=== PATIENT | female | born 1965 | race Caucasian/White ===

== ENCOUNTER 2017-01-21 14:44 | Inpatient (IN) | payer MEDICARE, MEDICAID ==
[~2017-01-21] VITALS: Ht 149.9 cm; Wt 83.7 kg
[~2017-01-21 14:44] MED LIST: DIPH25 PO; DIVA500T52 PO; GABA-531 PO; HALO10 PO; LEVE500T53 PO; LEVO500 PO; LORA0.5T2 PO; LORA10TA7 PO; OXYB5 PO; PANT40TA25 PO; VIST50 PO
[2017-01-21] MEDS ORDERED: ASPI-556 PO (15:44)
[2017-01-21] MEDS ORDERED: SODIUM CHLORIDE 0.9% 1,000 ML IV ONE (16:30)
[2017-01-21 16:50] LABS: BASOPHILS % (AUTO) 0.7 % (0.0-2.0); EOSINOPHILS % (AUTO) 0.2 % (1.0-6.0); HEMATOCRIT 40.5 % (36-46); HEMOGLOBIN 13.6 g/dL (12.0-16.0); LYMPHOCYTES % (AUTO) 27.2 % (22.0-44.0); MEAN CORPUSCULAR HEMOGLOBIN 33.9 pg (26.0-34.0); MEAN CORPUSCULAR HGB CONC 33.4 G/dL (31.0-37.0); MEAN CORPUSCULAR VOLUME 101 fL (80-100); MONOCYTES # (AUTO) 0.5 K/uL (0.1-1.0); MONOCYTES % (AUTO) 6.7 % (2.0-9.0); NEUTROPHILS # (AUTO) 4.8 K/uL (1.8-7.7); NEUTROPHILS % (AUTO) 65.2 % (40.0-70.0); PLATELET COUNT (AUTO) 222 K/uL (150-450); RED CELL DISTRIBUTION WIDTH 13.2 % (11.5-14.5); WHITE BLOOD COUNT (AUTO) 7.4 K/uL (4.5-11.0)
[2017-01-21 17:10] LABS: ANION GAP 10 mmol/L (8-16); CARBON DIOXIDE 28 mmol/L (22-29); CHLORIDE 103 mmol/L (98-107); CREATININE 0.82 mg/dL (0.60-1.30); GLOMERULAR FILTR. RATE CALC > 60 mL/min (>60); POTASSIUM 3.8 mmol/L (3.5-5.1); SODIUM SERUM 141 mmol/L (136-145); UREA NITROGEN, BLOOD 10 mg/dL (7-18)
[2017-01-21 17:16] LABS: ALANINE AMINOTRANSFERASE 16 U/L (12-78); ALBUMIN 3.3 g/dL (3.4-5.0); ASPARTATE AMINOTRANSFERASE 10 U/L (15-37); BILIRUBIN,TOTAL 0.1 mg/dL (0.1-1.0); TOTAL PROTEIN, SERUM 6.8 g/dL (6.4-8.2)
[2017-01-21 17:38] LABS: ACETAMINOPHEN < 2 mcg/mL (10-30)
[2017-01-21 17:42] LABS: SALICYLATE 4.1 mg/dL (2.8-20.0)
[2017-01-21] MEDS ORDERED: ZOLPIDEM TARTRATE 10 MG TABLET PO PRN (22:00)
[2017-01-21] MEDS ORDERED: QUEtiapine FUMARATE 100 MG TABLET PO PRN (22:00)
[2017-01-21 22:14] LABS: APPEARANCE,URINE CLEAR (CLEAR); GLUCOSE, URINE (UA) NEGATIVE (NEGATIVE); KETONES,URINE NEGATIVE (NEGATIVE); LEUKOCYTE ESTERASE ,URINE NEGATIVE (NEGATIVE); OCCULT BLOOD,URINE NEGATIVE (NEGATIVE); PH,URINE 7.5 (5.0-8.0); PROTEIN,URINE NEGATIVE (NEGATIVE)
[2017-01-21 22:15] LABS: ADD UA MICROSCOPIC NO
[2017-01-22 00:28] VITALS: BP 119/90
[2017-01-22] MEDS ORDERED: -PHARMACY VACCINE NOTE- MISC ONE ×2 (02:00)
[2017-01-22 08:07] VITALS: BP 148/97
[2017-01-22] MEDS ORDERED: ALBUTEROL SULFATE HFA 90 MCG/PUFF 8 GM INHALER IH PRN (12:15)
[2017-01-22] MEDS: LORazepam 2 MG TABLET PO PRN (12:45)
[2017-01-22] MEDS: GABAPENTIN 300 MG CAPSULE PO SCH ×2 (12:45→16:26)
[2017-01-22] MEDS: HALOPERIDOL 5 MG TABLET PO PRN (12:45)
[2017-01-22 16:12] VITALS: BP 143/79
[2017-01-22] MEDS: DIVALPROEX SODIUM 500 MG ER TABLET PO SCH (20:38)
[2017-01-22] MEDS: HALOPERIDOL 10 MG TABLET PO SCH (20:38)
[2017-01-23] MEDS: HALOPERIDOL 5 MG TABLET PO PRN ×2 (02:26→18:52)
[2017-01-23 02:30] VITALS: BP 144/89
[2017-01-23] MEDS: LevETIRAcetam 500 MG TABLET PO SCH (08:18)
[2017-01-23] MEDS: ASPIRIN 81 MG EC TABLET PO SCH (08:18)
[2017-01-23] MEDS: DiphenhydrAMINE HCL 25 MG CAPSULE PO SCH (08:18)
[2017-01-23 08:19] VITALS: BP 153/102
[2017-01-23] MEDS: GABAPENTIN 300 MG CAPSULE PO SCH ×3 (08:19→16:32)
[2017-01-23] MEDS: LORATADINE 10 MG TABLET PO SCH (08:19)
[2017-01-23] MEDS: LORazepam 2 MG TABLET PO PRN ×2 (08:21→19:46)
[2017-01-23 09:21] VITALS: BP 138/93
[2017-01-23 16:00] VITALS: BP 121/89
[2017-01-23] MEDS: DIVALPROEX SODIUM 500 MG ER TABLET PO SCH (21:06)
[2017-01-23] MEDS: HALOPERIDOL 10 MG TABLET PO SCH (21:07)
[2017-01-24 04:23] VITALS: BP 123/86
[2017-01-24] MEDS: HALOPERIDOL 5 MG TABLET PO PRN ×2 (04:30→12:39)
[2017-01-24] MEDS: DiphenhydrAMINE HCL 25 MG CAPSULE PO SCH (08:13)
[2017-01-24] MEDS: GABAPENTIN 300 MG CAPSULE PO SCH ×3 (08:13→16:00)
[2017-01-24] MEDS: LORATADINE 10 MG TABLET PO SCH (08:13)
[2017-01-24] MEDS: DIVALPROEX SODIUM 500 MG ER TABLET PO SCH ×2 (08:14→20:00)
[2017-01-24] MEDS: ASPIRIN 81 MG EC TABLET PO SCH (08:14)
[2017-01-24] MEDS: LevETIRAcetam 500 MG TABLET PO SCH (08:14)
[2017-01-24 08:34] VITALS: BP 134/71
[2017-01-24] MEDS ORDERED: DIVALPROEX SODIUM 500 MG DR TABLET PO SCH (09:00)
[2017-01-24] MEDS: LORazepam 2 MG TABLET PO PRN ×2 (09:02→20:07)
[2017-01-24 16:07] VITALS: BP 133/77
[2017-01-24] MEDS: HALOPERIDOL 10 MG TABLET PO SCH (20:00)
[2017-01-25] MEDS: HALOPERIDOL 5 MG TABLET PO PRN (05:00)
[2017-01-25 05:13] VITALS: BP 105/68
[2017-01-25] MEDS: LORazepam 2 MG TABLET PO PRN (05:16)
[2017-01-25 07:56] LABS: BASOPHILS % (AUTO) 0.6 % (0.0-2.0); EOSINOPHILS % (AUTO) 1.9 % (1.0-6.0); HEMATOCRIT 40.8 % (36-46); HEMOGLOBIN 13.5 g/dL (12.0-16.0); LYMPHOCYTES # (AUTO) 2.4 K/uL (1.0-4.8); LYMPHOCYTES % (AUTO) 39.7 % (22.0-44.0); MEAN CORPUSCULAR HEMOGLOBIN 33.6 pg (26.0-34.0); MEAN CORPUSCULAR VOLUME 102 fL (80-100); MONOCYTES # (AUTO) 0.5 K/uL (0.1-1.0); MONOCYTES % (AUTO) 8.8 % (2.0-9.0); PLATELET COUNT (AUTO) 219 K/uL (150-450); WHITE BLOOD COUNT (AUTO) 6.1 K/uL (4.5-11.0)
[2017-01-25 07:57] LABS: RBC MORPHOLOGY COMMENT ABNORMAL RBC MORPH
[2017-01-25 08:20] LABS: ALBUMIN 3.1 g/dL (3.4-5.0); BILIRUBIN,DIRECT 0.1 mg/dL (0.00-0.20); BILIRUBIN,TOTAL 0.3 mg/dL (0.1-1.0); TOTAL PROTEIN, SERUM 6.7 g/dL (6.4-8.2)
[2017-01-25] MEDS: DiphenhydrAMINE HCL 25 MG CAPSULE PO SCH (08:26)
[2017-01-25 08:27] VITALS: BP 112/70
[2017-01-25] MEDS: DIVALPROEX SODIUM 500 MG ER TABLET PO SCH (08:27)
[2017-01-25] MEDS: LORATADINE 10 MG TABLET PO SCH (08:27)
[2017-01-25] MEDS: ASPIRIN 81 MG EC TABLET PO SCH (08:27)
[2017-01-25] MEDS: LevETIRAcetam 500 MG TABLET PO SCH (08:27)
[2017-01-25] MEDS: GABAPENTIN 300 MG CAPSULE PO SCH ×2 (08:29→12:07)
== END 2017-01-25 13:45 | disposition home or self-care (01) | DRG 885 ==
LOC: EMS 14:47 → B3A 22:25
PROVIDERS: ADMIT Psychiatry & Neurology Psychiatry; ATTEND Psychiatry & Neurology Psychiatry
DX: F25.0 Schizoaffective disorder, bipolar type (principal); R45.851 Suicidal ideations; J45.909 Unspecified asthma, uncomplicated; J44.9 Chronic obstructive pulmonary disease, unspecified; I10 Essential (primary) hypertension; F17.210 Nicotine dependence, cigarettes, uncomplicated; T42.4X2A Poisoning by benzodiazepines, intentional self-harm, initial encounter; Z91.19 Patient's noncompliance with other medical treatment and regimen; E66.9 Obesity, unspecified; G40.909 Epilepsy, unspecified, not intractable, without status epilepticus; K21.9 Gastro-esophageal reflux disease without esophagitis; G47.00 Insomnia, unspecified; E11.9 Type 2 diabetes mellitus without complications; F15.90 Other stimulant use, unspecified, uncomplicated; R32 Unspecified urinary incontinence; Z88.8 Allergy status to other drugs, medicaments and biological substances; Z79.52 Long term (current) use of systemic steroids; Z88.0 Allergy status to penicillin; Z79.899 Other long term (current) drug therapy; Z79.82 Long term (current) use of aspirin; Z90.49 Acquired absence of other specified parts of digestive tract; Z98.890 Other specified postprocedural states; Z68.37 Body mass index [BMI] 37.0-37.9, adult; Z91.5 Personal history of self-harm; Y93.89 Activity, other specified; Y92.89 Other specified places as the place of occurrence of the external cause; Y99.8 Other external cause status
CPT/HCPCS: 96360; 96361; 99285; G0480; G0481; J3535; J7030

== ENCOUNTER 2017-03-01 15:50 | Inpatient (IN) | payer MEDICARE, MEDICAID ==
[~2017-03-01] VITALS: Ht 149.9 cm; Wt 86.2 kg
[~2017-03-01 15:50] MED LIST changes: +ASPI-556 PO; -LEVO500 PO; -LORA0.5T2 PO; -OXYB5 PO; -PANT40TA25 PO; -VIST50 PO
[2017-03-01] MEDS ORDERED: CHLO100T24 PO (16:27)
[2017-03-01] MEDS ORDERED: HALO10 PO (16:27)
[2017-03-01] MEDS ORDERED: DIPH25 PO (16:27)
[2017-03-01] MEDS ORDERED: HALO5 PO (16:27)
[2017-03-01] MEDS ORDERED: LORA0.5T2 PO (16:27)
[2017-03-01] MEDS ORDERED: HYDR-4031 PO (16:27)
[2017-03-01] MEDS ORDERED: DIVA500T35 PO (16:27)
[2017-03-01 16:54] LABS: BASOPHILS # (AUTO) 0.04 K/uL (0.00-0.20); BASOPHILS % (AUTO) 0.7 % (0.0-2.0); EOSINOPHILS # (AUTO) 0.07 K/uL (0.00-0.70); HEMATOCRIT 41.9 % (36-46); HEMOGLOBIN 13.9 g/dL (12.0-16.0); LYMPHOCYTES # (AUTO) 2.5 K/uL (1.0-4.8); LYMPHOCYTES % (AUTO) 38.2 % (22.0-44.0); MEAN CORPUSCULAR HGB CONC 33.1 G/dL (31.0-37.0); MEAN CORPUSCULAR VOLUME 103 fL (80-100); MONOCYTES # (AUTO) 0.6 K/uL (0.1-1.0); MONOCYTES % (AUTO) 9.8 % (2.0-9.0); NEUTROPHILS # (AUTO) 3.2 K/uL (1.8-7.7); NEUTROPHILS % (AUTO) 50.3 % (40.0-70.0); PLATELET COUNT (AUTO) 162 K/uL (150-450); RED BLOOD CELL COUNT(AUTO) 4.07 MIL/uL (4.00-5.20); RED CELL DISTRIBUTION WIDTH 13.2 % (11.5-14.5); WHITE BLOOD COUNT (AUTO) 6.4 K/uL (4.5-11.0)
[2017-03-01 17:03] LABS: ANION GAP 5 mmol/L (8-16); CALCIUM, TOTAL 8.8 mg/dL (8.8-10.5); CARBON DIOXIDE 31 mmol/L (22-29); CHLORIDE 101 mmol/L (98-107); CREATININE 0.83 mg/dL (0.60-1.30); GLOMERULAR FILTR. RATE CALC > 60 mL/min (>60); POTASSIUM 4.2 mmol/L (3.5-5.1); SODIUM SERUM 137 mmol/L (136-145); UREA NITROGEN, BLOOD 14 mg/dL (7-18)
[2017-03-01 17:09] LABS: ALANINE AMINOTRANSFERASE 15 U/L (12-78); ALBUMIN 3.5 g/dL (3.4-5.0); ASPARTATE AMINOTRANSFERASE 6 U/L (15-37); BILIRUBIN,TOTAL 0.2 mg/dL (0.1-1.0); TOTAL PROTEIN, SERUM 6.8 g/dL (6.4-8.2); VALPROIC ACID 105 mcg/mL (50-100)
[2017-03-01 17:10] LABS: RBC MORPHOLOGY COMMENT ABNORMAL RBC MORPH
[2017-03-01] MEDS ORDERED: LORazepam 2 MG TABLET PO ONE (17:30)
[2017-03-01] MEDS ORDERED: HALOPERIDOL 5 MG TABLET PO ONE (17:30)
[2017-03-01 20:47] VITALS: BP 126/83
[2017-03-02 07:06] VITALS: BP 126/100
[2017-03-02] MEDS: LevETIRAcetam 500 MG TABLET PO SCH (08:20)
[2017-03-02] MEDS: ASPIRIN 81 MG CHEWABLE TABLET PO SCH (08:20)
[2017-03-02] MEDS: LORazepam 2 MG TABLET PO PRN ×3 (08:20→17:39)
[2017-03-02 08:27] VITALS: BP 136/75
[2017-03-02] MEDS: HALOPERIDOL 5 MG TABLET PO PRN ×2 (14:13→18:18)
[2017-03-02 16:00] VITALS: BP 143/78
[2017-03-02] MEDS: NICOTINE 21 MG/24 HOUR PATCH TD SCH (20:24)
[2017-03-02] MEDS: ZOLPIDEM TARTRATE 10 MG TABLET PO PRN (20:59)
[2017-03-03 06:06] VITALS: BP 146/83
[2017-03-03 08:34] VITALS: BP 134/73
[2017-03-03] MEDS: LevETIRAcetam 500 MG TABLET PO SCH (08:44)
[2017-03-03] MEDS: NICOTINE 21 MG/24 HOUR PATCH TD SCH (08:44)
[2017-03-03] MEDS: GABAPENTIN 300 MG CAPSULE PO SCH ×3 (08:44→16:05)
[2017-03-03] MEDS: ASPIRIN 81 MG CHEWABLE TABLET PO SCH (08:45)
[2017-03-03] MEDS: HALOPERIDOL 5 MG TABLET PO SCH ×2 (08:45→16:05)
[2017-03-03] MEDS: LORazepam 2 MG TABLET PO PRN ×2 (09:35→14:49)
[2017-03-03] MEDS ORDERED: ONDANSETRON HCL 4 MG TABLET PO PRN (11:30)
[2017-03-03] MEDS: HALOPERIDOL 5 MG TABLET PO PRN (14:49)
[2017-03-03 16:23] VITALS: BP 135/80
[2017-03-03] MEDS ORDERED: DiphenhydrAMINE HCL 50 MG/ML VIAL IM ONE (19:45)
[2017-03-03] MEDS ORDERED: LORazepam 2 MG/ML VIAL IM ONE (19:45)
[2017-03-03] MEDS ORDERED: HALOPERIDOL LACTATE 5 MG/ML VIAL IM ONE (19:45)
[2017-03-03] MEDS: DIVALPROEX SODIUM 500 MG DR TABLET PO SCH (20:04)
[2017-03-03] MEDS: ZOLPIDEM TARTRATE 10 MG TABLET PO PRN (21:05)
[2017-03-04 05:28] VITALS: BP 137/78
[2017-03-04 08:26] VITALS: BP 125/75
[2017-03-04] MEDS: GABAPENTIN 300 MG CAPSULE PO SCH ×3 (08:32→16:24)
[2017-03-04] MEDS: DIVALPROEX SODIUM 500 MG ER TABLET PO SCH (08:32)
[2017-03-04] MEDS: ASPIRIN 81 MG CHEWABLE TABLET PO SCH (08:32)
[2017-03-04] MEDS: HALOPERIDOL 5 MG TABLET PO SCH ×2 (08:32→16:25)
[2017-03-04] MEDS: LevETIRAcetam 500 MG TABLET PO SCH (08:33)
[2017-03-04] MEDS: NICOTINE 21 MG/24 HOUR PATCH TD SCH (08:33)
[2017-03-04] MEDS: LORazepam 2 MG TABLET PO PRN ×2 (08:54→14:14)
[2017-03-04] MEDS: HALOPERIDOL 5 MG TABLET PO PRN ×2 (12:30→18:04)
[2017-03-04 16:00] VITALS: BP 137/75
[2017-03-04] MEDS: DIVALPROEX SODIUM 500 MG DR TABLET PO SCH (20:27)
[2017-03-04] MEDS: ZOLPIDEM TARTRATE 10 MG TABLET PO PRN (21:05)
[2017-03-05 06:31] VITALS: BP 125/72
[2017-03-05 08:51] VITALS: BP 125/61
[2017-03-05] MEDS ORDERED: HALOPERIDOL DECANOATE 50 MG/ML VIAL IM SCH (09:00)
[2017-03-05] MEDS: LevETIRAcetam 500 MG TABLET PO SCH (09:04)
[2017-03-05] MEDS: DIVALPROEX SODIUM 500 MG ER TABLET PO SCH (09:05)
[2017-03-05] MEDS: GABAPENTIN 300 MG CAPSULE PO SCH ×3 (09:05→16:27)
[2017-03-05] MEDS: ASPIRIN 81 MG CHEWABLE TABLET PO SCH (09:05)
[2017-03-05] MEDS: HALOPERIDOL 5 MG TABLET PO SCH ×2 (09:05→16:28)
[2017-03-05] MEDS: NICOTINE 21 MG/24 HOUR PATCH TD SCH (09:08)
[2017-03-05] MEDS: LORazepam 2 MG TABLET PO PRN (09:08)
[2017-03-05] MEDS ORDERED: DiphenhydrAMINE HCL 25 MG CAPSULE PO PRN (12:30)
[2017-03-05] MEDS: HydrOXYzine PAMOATE 25 MG CAPSULE PO PRN ×2 (12:43→16:46)
[2017-03-05 16:10] VITALS: BP 136/78
[2017-03-05] MEDS: HALOPERIDOL 5 MG TABLET PO PRN (18:16)
[2017-03-05] MEDS: DIVALPROEX SODIUM 500 MG DR TABLET PO SCH (20:17)
[2017-03-06] MEDS: HydrOXYzine PAMOATE 25 MG CAPSULE PO PRN ×2 (04:47→10:38)
[2017-03-06 07:13] VITALS: BP 130/72
[2017-03-06 08:14] VITALS: BP 90/59
[2017-03-06] MEDS: LevETIRAcetam 500 MG TABLET PO SCH (08:19)
[2017-03-06] MEDS: ASPIRIN 81 MG CHEWABLE TABLET PO SCH (08:19)
[2017-03-06] MEDS: GABAPENTIN 300 MG CAPSULE PO SCH ×2 (08:19→12:41)
[2017-03-06] MEDS: HALOPERIDOL 5 MG TABLET PO SCH (08:19)
[2017-03-06] MEDS: DIVALPROEX SODIUM 500 MG ER TABLET PO SCH (08:19)
[2017-03-06] MEDS: NICOTINE 21 MG/24 HOUR PATCH TD SCH (08:20)
[2017-03-06] MEDS ORDERED: HALOD50I IM (08:40)
== END 2017-03-06 13:45 | disposition home or self-care (01) | DRG 885 ==
LOC: BV PSY EVL 15:56 → EMS 16:09 → B3A 18:30 → B2S 20:21 → B3A 21:59
PROVIDERS: ADMIT Psychiatry & Neurology Psychiatry; ATTEND Psychiatry & Neurology Psychiatry
DX: F25.0 Schizoaffective disorder, bipolar type (principal); R45.851 Suicidal ideations; E11.9 Type 2 diabetes mellitus without complications; E78.5 Hyperlipidemia, unspecified; F22 Delusional disorders; G40.909 Epilepsy, unspecified, not intractable, without status epilepticus; G47.00 Insomnia, unspecified; G62.9 Polyneuropathy, unspecified; I10 Essential (primary) hypertension; J44.9 Chronic obstructive pulmonary disease, unspecified; K21.9 Gastro-esophageal reflux disease without esophagitis; Z91.19 Patient's noncompliance with other medical treatment and regimen; F44.5 Conversion disorder with seizures or convulsions; R11.2 Nausea with vomiting, unspecified; E66.9 Obesity, unspecified
CPT/HCPCS: 87081; 99285; 99406; G0480; J1200; J1630; J1631; J2060; Q0162

== ENCOUNTER 2017-07-15 15:35 | Inpatient (IN) | payer MEDICARE, OTHER ==
[~2017-07-15] VITALS: Ht 149.9 cm; Wt 84.2 kg
[~2017-07-15 15:35] MED LIST changes: -ASPI-556 PO; -GABA-531 PO; -HALO10 PO; +HALO5 PO; +HALO50VI4 IM; -LORA10TA7 PO
[2017-07-15] MEDS ORDERED: HALO5 PO (15:56)
[2017-07-15] MEDS ORDERED: HYDR-4031 PO (15:56)
[2017-07-15] MEDS ORDERED: GABA-531 PO (15:56)
[2017-07-15] MEDS ORDERED: AMANL PO (15:56)
[2017-07-15] MEDS ORDERED: TRIH5TAB2 PO (15:56)
[2017-07-15] MEDS ORDERED: ALBUTEROL SULFATE HFA 90 MCG/PUFF 8 GM INHALER IH ONE (16:00)
[2017-07-15 16:23] LABS: ANION GAP 7 mmol/L (8-16); CALCIUM, TOTAL 8.2 mg/dL (8.8-10.5); CARBON DIOXIDE 28 mmol/L (22-29); CHLORIDE 96 mmol/L (98-107); CREATININE 1.38 mg/dL (0.60-1.30); GLOMERULAR FILTR. RATE CALC 40 mL/min (>60); POTASSIUM 3.6 mmol/L (3.5-5.1); SODIUM SERUM 131 mmol/L (136-145); UREA NITROGEN, BLOOD 15 mg/dL (7-18)
[2017-07-15 16:29] LABS: ACETAMINOPHEN < 2 mcg/mL (10-30); ALANINE AMINOTRANSFERASE 8 U/L (12-78); ASPARTATE AMINOTRANSFERASE 10 U/L (15-37); BILIRUBIN,TOTAL 0.3 mg/dL (0.1-1.0); TOTAL PROTEIN, SERUM 6.1 g/dL (6.4-8.2)
[2017-07-15 16:44] LABS: SALICYLATE 3.8 mg/dL (2.8-20.0)
[2017-07-15 17:07] LABS: BASOPHILS # (AUTO) 0.05 K/uL (0.00-0.20); BASOPHILS % (AUTO) 0.7 % (0.0-2.0); EOSINOPHILS # (AUTO) 0.14 K/uL (0.00-0.70); EOSINOPHILS % (AUTO) 1.83 % (1.0-6.0); HEMATOCRIT 22.4 % (36-46); HEMOGLOBIN 7.5 g/dL (12.0-16.0); LYMPHOCYTES # (AUTO) 2.4 K/uL (1.0-4.8); LYMPHOCYTES % (AUTO) 31.6 % (22.0-44.0); MEAN CORPUSCULAR HEMOGLOBIN 35.2 pg (26.0-34.0); MEAN CORPUSCULAR HGB CONC 33.6 G/dL (31.0-37.0); MEAN CORPUSCULAR VOLUME 105 fL (80-100); MONOCYTES # (AUTO) 0.5 K/uL (0.1-1.0); MONOCYTES % (AUTO) 6.5 % (2.0-9.0); NEUTROPHILS # (AUTO) 4.5 K/uL (1.8-7.7); NEUTROPHILS % (AUTO) 59.5 % (40.0-70.0); RED BLOOD CELL COUNT(AUTO) 2.14 MIL/uL (4.00-5.20); RED CELL DISTRIBUTION WIDTH 14.9 % (11.5-14.5); WHITE BLOOD COUNT (AUTO) 7.5 K/uL (4.5-11.0)
[2017-07-15 17:30] LABS: PLATELET COUNT (AUTO) 82 K/uL (150-450); RBC MORPHOLOGY COMMENT ABNORMAL RBC MORPH
[2017-07-15 20:50] VITALS: BP 142/97
[2017-07-15] MEDS ORDERED: ACETAMINOPHEN 325 MG TABLET PO PRN (21:45)
[2017-07-15] MEDS ORDERED: ALBUTEROL SULFATE 2.5 MG/0.5 ML NEB SOLUTION NEB PRN (21:45)
[2017-07-15] MEDS ORDERED: MAGNESIUM HYDROXIDE SUSPENSION 30 ML UDCUP PO PRN (21:45)
[2017-07-15 23:13] VITALS: BP 141/76
[2017-07-16 03:51] VITALS: BP 106/90
[2017-07-16 06:34] LABS: BASOPHILS % (AUTO) 0.6 % (0.0-2.0); EOSINOPHILS % (AUTO) 2.7 % (1.0-6.0); HEMATOCRIT 25.2 % (36-46); HEMOGLOBIN 8.8 g/dL (12.0-16.0); LYMPHOCYTES # (AUTO) 1.7 K/uL (1.0-4.8); LYMPHOCYTES % (AUTO) 31.2 % (22.0-44.0); MEAN CORPUSCULAR HGB CONC 34.9 G/dL (31.0-37.0); MEAN CORPUSCULAR VOLUME 103 fL (80-100); MONOCYTES # (AUTO) 0.4 K/uL (0.1-1.0); MONOCYTES % (AUTO) 7.4 % (2.0-9.0); NEUTROPHILS # (AUTO) 3.2 K/uL (1.8-7.7); NEUTROPHILS % (AUTO) 58.1 % (40.0-70.0); RED BLOOD CELL COUNT(AUTO) 2.44 MIL/uL (4.00-5.20); RED CELL DISTRIBUTION WIDTH 14.5 % (11.5-14.5); WHITE BLOOD COUNT (AUTO) 5.5 K/uL (4.5-11.0)
[2017-07-16 06:43] LABS: PROTHROMBIN TIME 10.4 SEC (9.4-11.6)
[2017-07-16] MEDS ORDERED: [UNRECOGNIZED DRUG - CODE] TD (06:59)
[2017-07-16 07:37] VITALS: BP 124/74
[2017-07-16 08:31] LABS: PLATELET COUNT (AUTO) 99 K/uL (150-450); RBC MORPHOLOGY COMMENT ABNORMAL RBC MORPH
[2017-07-16] MEDS: DOCUSATE SODIUM 100 MG CAPSULE PO SCH ×2 (09:00→20:19)
[2017-07-16] MEDS ORDERED: PANTOPRAZOLE SODIUM 40 MG/VIAL IVP SCH (09:00)
[2017-07-16] MEDS: FOLIC ACID 1 MG TABLET PO SCH (09:21)
[2017-07-16 12:40] VITALS: BP 119/76
[2017-07-16] MEDS: TRIHEXYPHENIDYL HCL 5 MG TABLET PO SCH ×2 (12:40→20:19)
[2017-07-16] MEDS: HALOPERIDOL 10 MG TABLET PO SCH ×2 (12:40→20:20)
[2017-07-16] MEDS: GABAPENTIN 300 MG CAPSULE PO SCH ×2 (12:40→20:19)
[2017-07-16] MEDS ORDERED: AMAN100C12 PO (13:40)
[2017-07-16] MEDS: NICOTINE 21 MG/24 HOUR PATCH TD SCH (14:36)
[2017-07-16 14:48] LABS: INFLUENZA TYPE B NEGATIVE FOR TYPE B (NEGATIVE)
[2017-07-16] MEDS: HydrOXYzine PAMOATE 25 MG CAPSULE PO SCH ×2 (15:21→20:20)
[2017-07-16 15:43] VITALS: BP 116/72
[2017-07-16 19:30] VITALS: BP 141/74
[2017-07-16] MEDS ORDERED: DiphenhydrAMINE HCL 50 MG/ML VIAL IM PRN (22:00)
[2017-07-16] MEDS ORDERED: HALOPERIDOL LACTATE 5 MG/ML VIAL IM PRN (22:00)
[2017-07-16 23:57] VITALS: BP 108/78
[2017-07-17 03:30] VITALS: BP 124/74
[2017-07-17 07:27] VITALS: BP 138/74
[2017-07-17] MEDS: HydrOXYzine PAMOATE 25 MG CAPSULE PO SCH ×3 (07:47→20:00)
[2017-07-17] MEDS: FOLIC ACID 1 MG TABLET PO SCH (07:47)
[2017-07-17] MEDS: GABAPENTIN 300 MG CAPSULE PO SCH ×2 (07:47→20:00)
[2017-07-17] MEDS: HALOPERIDOL 10 MG TABLET PO SCH ×2 (07:48→20:01)
[2017-07-17] MEDS: DOCUSATE SODIUM 100 MG CAPSULE PO SCH ×2 (07:48→20:01)
[2017-07-17] MEDS: TRIHEXYPHENIDYL HCL 5 MG TABLET PO SCH ×2 (07:48→20:00)
[2017-07-17] MEDS: PANTOPRAZOLE SODIUM 40 MG DR TABLET PO SCH (09:44)
[2017-07-17] MEDS: NICOTINE 21 MG/24 HOUR PATCH TD SCH (09:44)
[2017-07-17 09:50] LABS: BASOPHILS % (AUTO) 0.5 % (0.0-2.0); EOSINOPHILS % (AUTO) 1.3 % (1.0-6.0); HEMATOCRIT 23.9 % (36-46); HEMOGLOBIN 8.1 g/dL (12.0-16.0); LYMPHOCYTES % (AUTO) 15.8 % (22.0-44.0); MEAN CORPUSCULAR HEMOGLOBIN 35.5 pg (26.0-34.0); MEAN CORPUSCULAR VOLUME 104 fL (80-100); MONOCYTES # (AUTO) 0.5 K/uL (0.1-1.0); MONOCYTES % (AUTO) 8.8 % (2.0-9.0); NEUTROPHILS # (AUTO) 4.5 K/uL (1.8-7.7); NEUTROPHILS % (AUTO) 73.6 % (40.0-70.0); PLATELET COUNT (AUTO) 131 K/uL (150-450); RED BLOOD CELL COUNT(AUTO) 2.29 MIL/uL (4.00-5.20); RED CELL DISTRIBUTION WIDTH 14.8 % (11.5-14.5); WHITE BLOOD COUNT (AUTO) 6.1 K/uL (4.5-11.0)
[2017-07-17 10:14] LABS: RBC MORPHOLOGY COMMENT ABNORMAL RBC MORPH
[2017-07-17 11:53] VITALS: BP 141/74
[2017-07-17] MEDS: LORazepam 2 MG/ML VIAL IM PRN ×2 (12:33→18:39)
[2017-07-17] MEDS: HYDROCODONE/ACETAMINOPHEN 5-325 MG TABLET PO PRN (14:09)
[2017-07-17 15:21] VITALS: BP 102/69
[2017-07-17 20:00] VITALS: BP 113/62
[2017-07-17] MEDS: ONDANSETRON HCL 4 MG/2 ML VIAL IM PRN (21:32)
[2017-07-17 22:10] LABS: OVA AND PARASITES EXAM Final report
[2017-07-18 00:15] VITALS: BP 102/57
[2017-07-18 05:30] VITALS: BP 114/72
[2017-07-18 07:18] VITALS: BP 105/66
[2017-07-18] MEDS: ONDANSETRON HCL 4 MG/2 ML VIAL IM PRN (07:41)
[2017-07-18] MEDS: HYDROCODONE/ACETAMINOPHEN 5-325 MG TABLET PO PRN (07:42)
[2017-07-18] MEDS: GABAPENTIN 300 MG CAPSULE PO SCH (08:16)
[2017-07-18] MEDS: FOLIC ACID 1 MG TABLET PO SCH (08:16)
[2017-07-18] MEDS: PANTOPRAZOLE SODIUM 40 MG DR TABLET PO SCH (08:16)
[2017-07-18] MEDS: HydrOXYzine PAMOATE 25 MG CAPSULE PO SCH (08:16)
[2017-07-18] MEDS: HALOPERIDOL 10 MG TABLET PO SCH (08:17)
[2017-07-18] MEDS: TRIHEXYPHENIDYL HCL 5 MG TABLET PO SCH (08:17)
[2017-07-18] MEDS: DOCUSATE SODIUM 100 MG CAPSULE PO SCH (08:21)
[2017-07-18] MEDS: NICOTINE 21 MG/24 HOUR PATCH TD SCH (08:23)
[2017-07-18 11:38] VITALS: BP 105/71
[2017-07-18] MEDS ORDERED: FERR-89 PO (12:54)
[2017-07-18] MEDS ORDERED: FOLI1TAB15 PO (12:55)
[2017-07-18 15:13] VITALS: BP 118/70
[2017-10-15] MEDS ORDERED: GABA-531 PO (11:11)
== END 2017-07-18 17:00 | disposition home or self-care (01) | DRG 813 ==
LOC: EMS 15:38 → 6N 19:51
PROVIDERS: ADMIT Internal Medicine; ATTEND Internal Medicine
DX: D69.3 Immune thrombocytopenic purpura (principal); N17.9 Acute kidney failure, unspecified; R45.851 Suicidal ideations; D58.9 Hereditary hemolytic anemia, unspecified; F20.9 Schizophrenia, unspecified; D50.9 Iron deficiency anemia, unspecified; F17.210 Nicotine dependence, cigarettes, uncomplicated; E66.9 Obesity, unspecified; F31.9 Bipolar disorder, unspecified; G40.909 Epilepsy, unspecified, not intractable, without status epilepticus; D69.6 Thrombocytopenia, unspecified; I10 Essential (primary) hypertension; J44.9 Chronic obstructive pulmonary disease, unspecified; K21.9 Gastro-esophageal reflux disease without esophagitis; Z83.3 Family history of diabetes mellitus; Z90.49 Acquired absence of other specified parts of digestive tract; Z88.0 Allergy status to penicillin; Z68.37 Body mass index [BMI] 37.0-37.9, adult
CPT/HCPCS: 82271; 82607; 82728; 82746; 83010; 83540; 83550; 83615; 85032; 85045; 85384; 85397; 86850; 86880; 86900; 86901; 87081; 87177; 87804; 99285; C9113; G0480; G0481; J2060; J2405; J3535

== ENCOUNTER 2017-07-27 12:38 | Emergency (ER) | payer MEDICARE, OTHER ==
[~2017-07-27] VITALS: Ht 165.1 cm; Wt 79.1 kg
[~2017-07-27 12:38] MED LIST changes: +FERR-89 PO; +FOLI1TAB15 PO; +GABA-531 PO; -HALO50VI4 IM; +HYDR-4031 PO; -LEVE500T53 PO; +TRIH5TAB2 PO; +[UNRECOGNIZED DRUG - CODE] TD
[2017-07-27 12:45] VITALS: BP 130/82
[2017-07-27 13:07] LABS: BASOPHILS # (AUTO) 0.06 K/uL (0.00-0.20); BASOPHILS % (AUTO) 0.7 % (0.0-2.0); EOSINOPHILS # (AUTO) 0.04 K/uL (0.00-0.70); EOSINOPHILS % (AUTO) 0.44 % (1.0-6.0); HEMOGLOBIN 10.4 g/dL (12.0-16.0); LYMPHOCYTES # (AUTO) 1.8 K/uL (1.0-4.8); LYMPHOCYTES % (AUTO) 20.1 % (22.0-44.0); MEAN CORPUSCULAR HEMOGLOBIN 35.7 pg (26.0-34.0); MEAN CORPUSCULAR HGB CONC 33.7 G/dL (31.0-37.0); MEAN CORPUSCULAR VOLUME 106 fL (80-100); MONOCYTES # (AUTO) 0.5 K/uL (0.1-1.0); MONOCYTES % (AUTO) 5.9 % (2.0-9.0); NEUTROPHILS # (AUTO) 6.4 K/uL (1.8-7.7); NEUTROPHILS % (AUTO) 72.9 % (40.0-70.0); PLATELET COUNT (AUTO) 254 K/uL (150-450); RED BLOOD CELL COUNT(AUTO) 2.92 MIL/uL (4.00-5.20); RED CELL DISTRIBUTION WIDTH 15.4 % (11.5-14.5); WHITE BLOOD COUNT (AUTO) 8.8 K/uL (4.5-11.0)
[2017-07-27 13:16] LABS: ANION GAP 10 mmol/L (8-16); CALCIUM, TOTAL 9.1 mg/dL (8.8-10.5); CARBON DIOXIDE 26 mmol/L (22-29); CHLORIDE 105 mmol/L (98-107); GLOMERULAR FILTR. RATE CALC > 60 mL/min (>60); POTASSIUM 3.7 mmol/L (3.5-5.1); SODIUM SERUM 141 mmol/L (136-145); UREA NITROGEN, BLOOD 11 mg/dL (7-18)
[2017-07-27 13:19] LABS: ALANINE AMINOTRANSFERASE 13 U/L (12-78); ALBUMIN 3.7 g/dL (3.4-5.0); ASPARTATE AMINOTRANSFERASE 9 U/L (15-37); BILIRUBIN,TOTAL 0.2 mg/dL (0.1-1.0); TOTAL PROTEIN, SERUM 7.3 g/dL (6.4-8.2)
[2017-07-27 13:25] LABS: RBC MORPHOLOGY COMMENT ABNORMAL RBC MORPH
[2017-07-27] MEDS ORDERED: LORazepam 2 MG TABLET PO ONE (14:15)
[2017-10-15] MEDS ORDERED: GABA-531 PO (11:11)
== END 2017-07-27 16:30 | disposition home or self-care (01) ==
LOC: EMS 12:42
DX: F20.9 Schizophrenia, unspecified (principal); F31.9 Bipolar disorder, unspecified; J45.909 Unspecified asthma, uncomplicated; J44.9 Chronic obstructive pulmonary disease, unspecified; I10 Essential (primary) hypertension; F17.210 Nicotine dependence, cigarettes, uncomplicated; Z88.0 Allergy status to penicillin; Z88.8 Allergy status to other drugs, medicaments and biological substances
CPT/HCPCS: 36415; 80053; 80307; 85025; 99285; G0480

== ENCOUNTER 2017-10-10 10:30 | Inpatient (IN) | payer MEDICARE, MEDICAID ==
[~2017-10-10] VITALS: Ht 152.4 cm; Wt 81.0 kg
[2017-10-10 11:01] VITALS: BP 150/78
[2017-10-10] MEDS ORDERED: HALOPERIDOL 5 MG TABLET PO PRN (12:45)
[2017-10-10] MEDS ORDERED: ZOLPIDEM TARTRATE 10 MG TABLET PO PRN (12:45)
[2017-10-10] MEDS: HydrOXYzine PAMOATE 25 MG CAPSULE PO SCH ×2 (12:52→16:56)
[2017-10-10] MEDS: LORazepam 2 MG TABLET PO PRN (12:56)
[2017-10-10 13:51] VITALS: BP 153/93
[2017-10-10] MEDS ORDERED: INFLUENZA VIRUS VACCINE QVS 2017-18 (3YR+)/PF 60 MCG/0.5 ML SYRINGE IM ONE ×2 (14:00→15:30)
[2017-10-10] MEDS ORDERED: -PHARMACY VACCINE NOTE- MISC ONE (15:15)
[2017-10-10] MEDS: FOLIC ACID 1 MG TABLET PO SCH (16:56)
[2017-10-10] MEDS: HALOPERIDOL 5 MG TABLET PO SCH (16:56)
[2017-10-10] MEDS: AMANTADINE HCL 100 MG CAPSULE PO SCH (16:56)
[2017-10-10 17:46] VITALS: BP 114/75
[2017-10-10] MEDS: HALOPERIDOL 10 MG TABLET PO SCH (20:35)
[2017-10-10] MEDS: DIVALPROEX SODIUM 500 MG ER TABLET PO SCH (20:36)
[2017-10-10] MEDS: DiphenhydrAMINE HCL 25 MG CAPSULE PO SCH (20:36)
[2017-10-11 06:24] VITALS: BP 104/72
[2017-10-11 08:13] LABS: AMPHET/METH SCREEN,URINE NEGATIVE (NEGATIVE); BARBITURATE SCREEN, URINE NEGATIVE (NEGATIVE); BENZODIAZEPINES SCREEN,URINE NEGATIVE (NEGATIVE); CANNABINOID SCREEN,URINE NEGATIVE (NEGATIVE); COCAINE SCREEN,URINE NEGATIVE (NEGATIVE); METHADONE SCREEN, URINE NEGATIVE (NEGATIVE); OPIATE SCREEN,URINE NEGATIVE (NEGATIVE)
[2017-10-11 08:14] LABS: PHENCYCLIDINE SCREEN,URINE NEGATIVE (NEGATIVE)
[2017-10-11] MEDS: AMANTADINE HCL 100 MG CAPSULE PO SCH ×2 (08:23→16:57)
[2017-10-11] MEDS: LevETIRAcetam 500 MG TABLET PO SCH (08:23)
[2017-10-11] MEDS: FOLIC ACID 1 MG TABLET PO SCH ×2 (08:23→16:57)
[2017-10-11] MEDS: DIVALPROEX SODIUM 500 MG ER TABLET PO SCH ×2 (08:23→20:20)
[2017-10-11] MEDS: GABAPENTIN 300 MG CAPSULE PO SCH (08:23)
[2017-10-11] MEDS: HydrOXYzine PAMOATE 25 MG CAPSULE PO SCH ×3 (08:23→16:57)
[2017-10-11] MEDS: HALOPERIDOL 5 MG TABLET PO SCH ×2 (08:23→16:57)
[2017-10-11] MEDS: LORazepam 2 MG TABLET PO PRN ×2 (08:51→19:07)
[2017-10-11 08:58] VITALS: BP 125/83
[2017-10-11 09:07] LABS: BILIRUBIN,URINE NEGATIVE (NEGATIVE); GLUCOSE, URINE (UA) NEGATIVE (NEGATIVE); KETONES,URINE NEGATIVE (NEGATIVE); LEUKOCYTE ESTERASE ,URINE TRACE (NEGATIVE); NITRATE,URINE NEGATIVE (NEGATIVE); OCCULT BLOOD,URINE NEGATIVE (NEGATIVE); PROTEIN,URINE NEGATIVE (NEGATIVE); UROBILINOGEN,URINE 0.2 mg/dL (<=1.0)
[2017-10-11 09:09] LABS: APPEARANCE,URINE CLEAR (CLEAR)
[2017-10-11 09:20] LABS: BACTERIA,URINE Few /HPF (None Seen); RBC,URINE 0-2 /HPF (0-2); SQUAMOUS EPITHELIAL CELL,UR Few /LPF (None Seen); WBC,URINE 0-2 /HPF (0-5)
[2017-10-11] MEDS: ALBUTEROL SULFATE HFA 90 MCG/PUFF 8 GM INHALER IH SCH ×3 (12:45→20:21)
[2017-10-11 16:39] VITALS: BP 122/81
[2017-10-11] MEDS: HALOPERIDOL 10 MG TABLET PO SCH (20:20)
[2017-10-11] MEDS: DiphenhydrAMINE HCL 25 MG CAPSULE PO SCH (20:20)
[2017-10-12 06:30] VITALS: BP 123/84
[2017-10-12] MEDS: HALOPERIDOL 5 MG TABLET PO SCH ×2 (08:10→17:12)
[2017-10-12] MEDS: LevETIRAcetam 500 MG TABLET PO SCH (08:10)
[2017-10-12] MEDS: DIVALPROEX SODIUM 500 MG ER TABLET PO SCH ×2 (08:10→20:22)
[2017-10-12] MEDS: AMANTADINE HCL 100 MG CAPSULE PO SCH ×2 (08:10→17:12)
[2017-10-12] MEDS: FOLIC ACID 1 MG TABLET PO SCH ×2 (08:11→17:12)
[2017-10-12] MEDS: GABAPENTIN 300 MG CAPSULE PO SCH (08:11)
[2017-10-12] MEDS: HydrOXYzine PAMOATE 25 MG CAPSULE PO SCH ×3 (08:11→17:12)
[2017-10-12 08:42] VITALS: BP 124/64
[2017-10-12] MEDS: ALBUTEROL SULFATE HFA 90 MCG/PUFF 8 GM INHALER IH SCH ×4 (09:03→20:23)
[2017-10-12] MEDS: LORazepam 2 MG TABLET PO PRN ×2 (09:03→22:11)
[2017-10-12 16:45] VITALS: BP 123/77
[2017-10-12] MEDS: HALOPERIDOL 10 MG TABLET PO SCH (20:21)
[2017-10-12] MEDS: DiphenhydrAMINE HCL 25 MG CAPSULE PO SCH (20:22)
[2017-10-13 00:30] VITALS: BP 114/86
[2017-10-13 08:23] VITALS: BP 125/87
[2017-10-13] MEDS: LevETIRAcetam 500 MG TABLET PO SCH (08:25)
[2017-10-13] MEDS: DIVALPROEX SODIUM 500 MG ER TABLET PO SCH ×2 (08:25→20:45)
[2017-10-13] MEDS: HALOPERIDOL 5 MG TABLET PO SCH ×2 (08:25→16:04)
[2017-10-13] MEDS: HydrOXYzine PAMOATE 25 MG CAPSULE PO SCH ×3 (08:25→16:04)
[2017-10-13] MEDS: FOLIC ACID 1 MG TABLET PO SCH ×2 (08:25→16:04)
[2017-10-13] MEDS: AMANTADINE HCL 100 MG CAPSULE PO SCH ×2 (08:25→16:04)
[2017-10-13] MEDS: GABAPENTIN 300 MG CAPSULE PO SCH (08:25)
[2017-10-13] MEDS: ALBUTEROL SULFATE HFA 90 MCG/PUFF 8 GM INHALER IH SCH ×4 (08:26→20:56)
[2017-10-13] MEDS ORDERED: ACETAMINOPHEN 325 MG TABLET PO PRN (12:30)
[2017-10-13] MEDS: LORazepam 2 MG TABLET PO PRN ×2 (13:53→17:53)
[2017-10-13 16:34] VITALS: BP 112/78
[2017-10-13] MEDS: DiphenhydrAMINE HCL 25 MG CAPSULE PO SCH (20:46)
[2017-10-13] MEDS: HALOPERIDOL 10 MG TABLET PO SCH (20:46)
[2017-10-14 00:01] VITALS: BP 114/73
[2017-10-14] MEDS: LORazepam 2 MG TABLET PO PRN (00:02)
[2017-10-14] MEDS: GABAPENTIN 300 MG CAPSULE PO SCH (08:13)
[2017-10-14] MEDS: HydrOXYzine PAMOATE 25 MG CAPSULE PO SCH ×2 (08:13→12:16)
[2017-10-14] MEDS: LevETIRAcetam 500 MG TABLET PO SCH (08:13)
[2017-10-14] MEDS: FOLIC ACID 1 MG TABLET PO SCH (08:13)
[2017-10-14] MEDS: HALOPERIDOL 5 MG TABLET PO SCH (08:13)
[2017-10-14] MEDS: AMANTADINE HCL 100 MG CAPSULE PO SCH (08:13)
[2017-10-14] MEDS: ALBUTEROL SULFATE HFA 90 MCG/PUFF 8 GM INHALER IH SCH ×2 (08:14→12:16)
[2017-10-14] MEDS: DIVALPROEX SODIUM 500 MG ER TABLET PO SCH (08:14)
[2017-10-14 08:30] VITALS: BP 125/87
[2017-10-14] MEDS ORDERED: HALO5 PO (08:30)
[2017-10-14] MEDS ORDERED: HYDR-4031 PO (08:30)
[2017-10-14] MEDS ORDERED: AMANL PO (08:30)
[2017-10-14] MEDS ORDERED: DIPH25 PO (08:44)
[2017-10-14] MEDS ORDERED: HALO10 PO (08:44)
[2017-10-14] MEDS ORDERED: DIVA500T52 PO (08:44)
[2017-10-14] MEDS ORDERED: ALBU8HFA IH (08:44)
[2017-10-14] MEDS ORDERED: LEVE500T53 PO (08:44)
[2017-10-14] MEDS ORDERED: GABA-531 PO (08:44)
[2017-10-15] MEDS ORDERED: GABA-531 PO (11:11)
== END 2017-10-14 13:25 | disposition home or self-care (01) | DRG 885 ==
LOC: B2X 11:04
PROVIDERS: ADMIT Psychiatry & Neurology Psychiatry; ATTEND Psychiatry & Neurology Psychiatry
PROC: 3E0234Z Introduction of Serum, Toxoid and Vaccine into Muscle, Percutaneous Approach (ICD-10-PCS; principal; 2017-10-10)
DX: F25.9 Schizoaffective disorder, unspecified (principal); D69.6 Thrombocytopenia, unspecified; R56.9 Unspecified convulsions; D64.9 Anemia, unspecified; E66.9 Obesity, unspecified; F22 Delusional disorders; J44.9 Chronic obstructive pulmonary disease, unspecified; G62.9 Polyneuropathy, unspecified; K21.9 Gastro-esophageal reflux disease without esophagitis; Z82.49 Family history of ischemic heart disease and other diseases of the circulatory system; Z87.891 Personal history of nicotine dependence; Z91.19 Patient's noncompliance with other medical treatment and regimen; Z90.49 Acquired absence of other specified parts of digestive tract; Z79.899 Other long term (current) drug therapy; Z88.0 Allergy status to penicillin; Z88.8 Allergy status to other drugs, medicaments and biological substances; Z68.34 Body mass index [BMI] 34.0-34.9, adult; Z23 Encounter for immunization
CPT/HCPCS: 80307; G0482; J3535

== ENCOUNTER 2017-11-13 12:05 | Inpatient (IN) | payer MEDICARE, MEDICAID ==
[~2017-11-13] VITALS: Ht 152.4 cm; Wt 88.9 kg
[~2017-11-13 12:05] MED LIST changes: +ALBU8HFA IH; +AMANL PO; -FERR-89 PO; -FOLI1TAB15 PO; +HALO10 PO; +LEVE500T53 PO; -TRIH5TAB2 PO; -[UNRECOGNIZED DRUG - CODE] TD
[2017-11-13] MEDS ORDERED: ALBUTEROL SULFATE HFA 90 MCG/PUFF 8 GM INHALER IH PRN (12:15)
[2017-11-13] MEDS: HydrOXYzine PAMOATE 50 MG CAPSULE PO SCH ×2 (14:51→18:30)
[2017-11-13] MEDS: GABAPENTIN 300 MG CAPSULE PO SCH ×2 (14:51→16:57)
[2017-11-13 15:29] VITALS: BP 145/91
[2017-11-13] MEDS ORDERED: PROMETHAZINE HCL 25 MG TABLET PO PRN (15:30)
[2017-11-13] MEDS ORDERED: GuaiFENesin/D-METHORPHAN [SUGAR-FREE] 200-20MG/10 ML SYRUP UDCUP PO PRN (15:30)
[2017-11-13] MEDS ORDERED: HydrOXYzine PAMOATE 50 MG CAPSULE PO PRN (15:30)
[2017-11-13] MEDS ORDERED: MAG HYDROX/AL HYDROX/SIMETH ES 30 ML SUSPENSION UDCUP PO PRN (15:30)
[2017-11-13] MEDS ORDERED: MAGNESIUM HYDROXIDE SUSPENSION 30 ML UDCUP PO PRN (15:30)
[2017-11-13] MEDS ORDERED: LOPERAMIDE HCL 2 MG CAPSULE PO PRN (15:30)
[2017-11-13] MEDS ORDERED: TUBERCULIN, PURIFIED PROTEIN DERIVATIVE 5 TU/0.1 ML SYG ID ONE (15:30)
[2017-11-13] MEDS ORDERED: HALOPERIDOL 5 MG TABLET PO PRN (15:30)
[2017-11-13] MEDS ORDERED: ACETAMINOPHEN 325 MG TABLET PO PRN (15:30)
[2017-11-13] MEDS ORDERED: INFLUENZA VIRUS VACCINE QVS 2017-18 (3YR+)/PF 60 MCG/0.5 ML SYRINGE IM ONE (15:45)
[2017-11-13 16:56] VITALS: BP 158/92
[2017-11-13] MEDS: AMANTADINE HCL 100 MG CAPSULE PO SCH (16:58)
[2017-11-13] MEDS: HALOPERIDOL 10 MG TABLET PO SCH (16:58)
[2017-11-13] MEDS ORDERED: DiphenhydrAMINE HCL 50 MG/ML VIAL IM ONE (17:00)
[2017-11-13] MEDS ORDERED: HALOPERIDOL LACTATE 5 MG/ML VIAL IM ONE (17:00)
[2017-11-13] MEDS ORDERED: LORazepam 2 MG/ML VIAL IM ONE (17:00)
[2017-11-13] MEDS ORDERED: LORazepam 2 MG TABLET PO PRN (17:00)
[2017-11-13] MEDS: THIAMINE HCL 100 MG TABLET PO SCH (17:06)
[2017-11-13 17:09] VITALS: BP 143/89
[2017-11-13] MEDS: NYSTATIN 15 GM POWDER BOTTLE TP SCH (17:50)
[2017-11-13] MEDS: DIVALPROEX SODIUM 500 MG ER TABLET PO SCH (20:48)
[2017-11-13] MEDS ORDERED: DiphenhydrAMINE HCL 25 MG CAPSULE PO SCH (21:00)
[2017-11-13] MEDS ORDERED: HALOPERIDOL 10 MG TABLET PO SCH (21:00)
[2017-11-14 07:03] VITALS: BP 140/88
[2017-11-14 08:17] LABS: BASOPHILS % (AUTO) 0.8 % (0.0-2.0); EOSINOPHILS % (AUTO) 1.8 % (1.0-6.0); HEMATOCRIT 38.1 % (36-46); HEMOGLOBIN 13.3 g/dL (12.0-16.0); LYMPHOCYTES # (AUTO) 1.8 K/uL (1.0-4.8); LYMPHOCYTES % (AUTO) 32.4 % (22.0-44.0); MEAN CORPUSCULAR HGB CONC 34.8 G/dL (31.0-37.0); MEAN CORPUSCULAR VOLUME 98 fL (80-100); MONOCYTES # (AUTO) 0.6 K/uL (0.1-1.0); PLATELET COUNT (AUTO) 224 K/uL (150-450); RED CELL DISTRIBUTION WIDTH 13.2 % (11.5-14.5)
[2017-11-14 08:30] VITALS: BP 138/76
[2017-11-14 08:35] LABS: HCG,QUAL RESULT NEGATIVE (NEGATIVE)
[2017-11-14 08:38] LABS: APPEARANCE,URINE CLEAR (CLEAR); BILIRUBIN,URINE NEGATIVE (NEGATIVE); GLUCOSE, URINE (UA) NEGATIVE (NEGATIVE); KETONES,URINE NEGATIVE (NEGATIVE); LEUKOCYTE ESTERASE ,URINE NEGATIVE (NEGATIVE); NITRATE,URINE NEGATIVE (NEGATIVE); OCCULT BLOOD,URINE NEGATIVE (NEGATIVE); PROTEIN,URINE NEGATIVE (NEGATIVE); UROBILINOGEN,URINE 0.2 mg/dL (<=1.0)
[2017-11-14] MEDS ORDERED: LevETIRAcetam 500 MG TABLET PO SCH (09:00)
[2017-11-14] MEDS ORDERED: MULTIVITAMINS WITH MINERALS, THERAPEUTIC TABLET PO SCH (09:00)
[2017-11-14] MEDS ORDERED: FOLIC ACID 1 MG TABLET PO SCH (09:00)
[2017-11-14] MEDS ORDERED: NICOTINE 21 MG/24 HOUR PATCH TD SCH (09:00)
[2017-11-14 09:31] LABS: ALANINE AMINOTRANSFERASE 9 U/L (12-78); ALBUMIN 3.2 g/dL (3.4-5.0); ALKALINE PHOSPHATASE 114 U/L (46-116); ANION GAP 7 mmol/L (8-16); ASPARTATE AMINOTRANSFERASE 8 U/L (15-37); BILIRUBIN,TOTAL 0.2 mg/dL (0.1-1.0); CALCIUM, TOTAL 8.6 mg/dL (8.8-10.5); CARBON DIOXIDE 30 mmol/L (22-29); CHLORIDE 104 mmol/L (98-107); CHOLESTEROL 173 mg/dL (131-200); CREATININE 0.64 mg/dL (0.60-1.30); FREE T4 (FREE THYROXINE) 0.76 ng/dL (0.76-1.46); GLOMERULAR FILTR. RATE CALC > 60 mL/min (>60); GLUCOSE,RANDOM 81 mg/dL (70-110); HDL CHOLESTEROL 58 mg/dL (40-60); LDL CHOL (CALC.) 80 mg/dL (0-130); POTASSIUM 3.5 mmol/L (3.5-5.1); SODIUM SERUM 141 mmol/L (136-145); THYROID STIMULATING HORMONE 3.36 uIU/mL (0.36-3.74); TOTAL PROTEIN, SERUM 6.4 g/dL (6.4-8.2); TRIGLYCERIDES 177 mg/dL (15-150); UREA NITROGEN, BLOOD 11 mg/dL (7-18); VALPROIC ACID 63 mcg/mL (50-100)
[2017-11-14] MEDS: HydrOXYzine PAMOATE 50 MG CAPSULE PO SCH ×3 (09:41→16:42)
[2017-11-14] MEDS: HALOPERIDOL 10 MG TABLET PO SCH ×2 (09:41→16:42)
[2017-11-14] MEDS: THIAMINE HCL 100 MG TABLET PO SCH (09:41)
[2017-11-14] MEDS: GABAPENTIN 300 MG CAPSULE PO SCH ×3 (09:41→16:43)
[2017-11-14] MEDS: DIVALPROEX SODIUM 500 MG ER TABLET PO SCH (09:41)
[2017-11-14] MEDS: AMANTADINE HCL 100 MG CAPSULE PO SCH ×2 (09:41→16:43)
[2017-11-14] MEDS: NYSTATIN 15 GM POWDER BOTTLE TP SCH ×2 (09:42→17:06)
[2017-11-14] MEDS ORDERED: HALO10 PO ×2 (14:16)
[2017-11-14] MEDS ORDERED: DIPH25 PO (14:16)
[2017-11-14] MEDS ORDERED: GABA-531 PO (14:16)
[2017-11-14] MEDS ORDERED: DIVA500T52 PO (14:16)
[2017-11-14] MEDS ORDERED: VIST50 PO (14:16)
[2017-11-14] MEDS ORDERED: AMAN100C12 PO (14:16)
[2017-11-14] MEDS ORDERED: LEVE500T53 PO (14:16)
[2017-11-14] MEDS ORDERED: NALT50TA PO (14:24)
[2017-11-14] MEDS ORDERED: THIA1002I IM (16:16)
[2017-11-14] MEDS ORDERED: NYST15PO3 TP (16:18)
[2017-11-14] MEDS ORDERED: MV-M1TAB2 PO (16:19)
[2017-11-15] MEDS ORDERED: NALTREXONE HCL 50 MG TABLET PO SCH (09:00)
== END 2017-11-14 18:45 | disposition home or self-care (01) | DRG 885 ==
LOC: B3A 12:26
PROVIDERS: ADMIT Psychiatry & Neurology Psychiatry; ATTEND Psychiatry & Neurology Psychiatry
PROC: 3E0234Z Introduction of Serum, Toxoid and Vaccine into Muscle, Percutaneous Approach (ICD-10-PCS; principal; 2017-11-13)
DX: F25.9 Schizoaffective disorder, unspecified (principal); D69.6 Thrombocytopenia, unspecified; E55.9 Vitamin D deficiency, unspecified; E78.1 Pure hyperglyceridemia; J44.9 Chronic obstructive pulmonary disease, unspecified; K21.9 Gastro-esophageal reflux disease without esophagitis; G40.909 Epilepsy, unspecified, not intractable, without status epilepticus; L30.9 Dermatitis, unspecified; I10 Essential (primary) hypertension; F17.200 Nicotine dependence, unspecified, uncomplicated; D64.9 Anemia, unspecified; Z81.8 Family history of other mental and behavioral disorders; Z82.49 Family history of ischemic heart disease and other diseases of the circulatory system; Z88.0 Allergy status to penicillin; Z88.8 Allergy status to other drugs, medicaments and biological substances; Z91.19 Patient's noncompliance with other medical treatment and regimen; Z90.49 Acquired absence of other specified parts of digestive tract; Z23 Encounter for immunization
CPT/HCPCS: 80173; 84439; 84443; 86592; 87081; J1200; J1630; J2060

== ENCOUNTER 2018-08-21 16:04 | Inpatient (IN) | payer MEDICARE, MEDICAID ==
[~2018-08-21] VITALS: Ht 149.9 cm; Wt 79.1 kg
[~2018-08-21 16:04] MED LIST changes: -ALBU8HFA IH; +AMAN100C12 PO; -HALO5 PO; +HALO5TAB2 PO; +HYDR50CA10 PO; +MV-M1TAB2 PO; +NALT50TA PO; +NYST15PO3 TP; +THIA1002I IM
[2018-08-21] MEDS ORDERED: HALOPERIDOL 5 MG TABLET PO PRN (16:30)
[2018-08-21] MEDS ORDERED: ZOLPIDEM TARTRATE 10 MG TABLET PO PRN (16:30)
[2018-08-21 16:45] VITALS: BP 140/72
[2018-08-21] MEDS ORDERED: PNEUMOCOCCAL VACCINE POLYVALENT 0.5 ML VIAL [PPSV23] IM ONE (17:15)
[2018-08-21] MEDS: LORazepam 2 MG TABLET PO PRN (17:29)
[2018-08-21 17:38] VITALS: BP 144/84
[2018-08-21 18:30] VITALS: BP 139/86
[2018-08-21] MEDS: AMANTADINE HCL 100 MG CAPSULE PO SCH (21:07)
[2018-08-22 06:47] VITALS: BP 145/91
[2018-08-22 08:14] VITALS: BP 163/65
[2018-08-22 08:24] LABS: BASOPHILS % (AUTO) 0.6 % (0.0-2.0); EOSINOPHILS % (AUTO) 3.1 % (1.0-6.0); HEMATOCRIT 44.7 % (36-46); HEMOGLOBIN 15.2 g/dL (12.0-16.0); LYMPHOCYTES # (AUTO) 2.4 K/uL (1.0-4.8); MEAN CORPUSCULAR HEMOGLOBIN 34.3 pg (26.0-34.0); MEAN CORPUSCULAR HGB CONC 34.1 G/dL (31.0-37.0); MEAN CORPUSCULAR VOLUME 101 fL (80-100); MONOCYTES # (AUTO) 0.6 K/uL (0.1-1.0); MONOCYTES % (AUTO) 10.8 % (2.0-9.0); NEUTROPHILS # (AUTO) 2.1 K/uL (1.8-7.7); NEUTROPHILS % (AUTO) 40.5 % (40.0-70.0); PLATELET COUNT (AUTO) 220 K/uL (150-450); RED BLOOD CELL COUNT(AUTO) 4.45 MIL/uL (4.00-5.20)
[2018-08-22 08:47] LABS: ALANINE AMINOTRANSFERASE 21 U/L (12-78); ALBUMIN 3.6 g/dL (3.4-5.0); ALKALINE PHOSPHATASE 93 U/L (46-116); ANION GAP 4 mmol/L (8-16); ASPARTATE AMINOTRANSFERASE 14 U/L (15-37); BILIRUBIN,TOTAL 0.4 mg/dL (0.1-1.0); CALCIUM, TOTAL 8.9 mg/dL (8.8-10.5); CARBON DIOXIDE 34 mmol/L (22-29); CHLORIDE 102 mmol/L (98-107); CHOL/HDL RATIO 3.2 (3.9-5.7); CHOLESTEROL 180 mg/dL (131-200); CREATININE 0.75 mg/dL (0.60-1.30); FREE T4 (FREE THYROXINE) 0.89 ng/dL (0.76-1.46); GLOMERULAR FILTR. RATE CALC > 60 mL/min (>60); GLUCOSE,RANDOM 89 mg/dL (70-110); HDL CHOLESTEROL 56 mg/dL (40-60); LDL CHOL (CALC.) 92 mg/dL (0-130); POTASSIUM 4.2 mmol/L (3.5-5.1); SODIUM SERUM 140 mmol/L (136-145); THYROID STIMULATING HORMONE 1.88 uIU/mL (0.36-3.74); TRIGLYCERIDES 158 mg/dL (15-150); UREA NITROGEN, BLOOD 7 mg/dL (7-18)
[2018-08-22] MEDS: AMANTADINE HCL 100 MG CAPSULE PO SCH (08:54)
[2018-08-22] MEDS: LORazepam 2 MG TABLET PO PRN (08:54)
[2018-08-22] MEDS ORDERED: DIVALPROEX SODIUM 500 MG ER TABLET PO SCH (09:00)
[2018-08-22] MEDS ORDERED: NICOTINE 21 MG/24 HOUR PATCH TD SCH (09:00)
[2018-08-22] MEDS ORDERED: LevETIRAcetam 500 MG TABLET PO SCH (09:00)
[2018-08-22] MEDS ORDERED: HALOPERIDOL 10 MG TABLET PO SCH ×2 (09:00→21:00)
[2018-08-22 09:32] LABS: HEMOGLOBIN A1C 5.1 % (4.5-6.2)
[2018-08-22 10:30] VITALS: BP 140/74
[2018-08-22] MEDS ORDERED: BISACODYL 5 MG EC TABLET PO PRN (11:15)
[2018-08-22] MEDS ORDERED: CloNIDine HCL 0.1 MG TABLET PO PRN (11:15)
[2018-08-22] MEDS ORDERED: DiphenhydrAMINE HCL 25 MG CAPSULE PO SCH (21:00)
[2018-08-23] MEDS ORDERED: AmLODIPine BESYLATE 2.5 MG TABLET PO SCH (09:00)
== END 2018-08-22 13:45 | disposition short-term general hospital (02) | DRG 885 ==
LOC: B3A 16:40
PROVIDERS: ADMIT Psychiatry & Neurology Psychiatry; ATTEND Psychiatry & Neurology Psychiatry
DX: F25.9 Schizoaffective disorder, unspecified (principal); J44.9 Chronic obstructive pulmonary disease, unspecified; K21.9 Gastro-esophageal reflux disease without esophagitis; E11.9 Type 2 diabetes mellitus without complications; E66.9 Obesity, unspecified; I10 Essential (primary) hypertension; K59.00 Constipation, unspecified; F15.90 Other stimulant use, unspecified, uncomplicated; E78.1 Pure hyperglyceridemia; R56.9 Unspecified convulsions; R32 Unspecified urinary incontinence; Z90.49 Acquired absence of other specified parts of digestive tract; Z82.49 Family history of ischemic heart disease and other diseases of the circulatory system
CPT/HCPCS: 83036; 84439; 84443; 90686; 90732

== ENCOUNTER 2018-08-22 13:59 | Inpatient (IN) | payer MEDICARE, MEDICAID ==
[~2018-08-22] VITALS: Ht 149.9 cm; Wt 78.9 kg
[2018-08-22] MEDS ORDERED: ZOLPIDEM TARTRATE 10 MG TABLET PO PRN (14:30)
[2018-08-22] MEDS ORDERED: HALOPERIDOL 5 MG TABLET PO PRN (14:30)
[2018-08-22] MEDS ORDERED: CloNIDine HCL 0.1 MG TABLET PO PRN (15:15)
[2018-08-22 16:21] VITALS: BP 129/89
[2018-08-22 16:23] VITALS: BP 129/89
[2018-08-22] MEDS: AMANTADINE HCL 100 MG CAPSULE PO SCH (16:53)
[2018-08-22] MEDS: HALOPERIDOL 10 MG TABLET PO SCH ×2 (16:53→20:32)
[2018-08-22] MEDS: DiphenhydrAMINE HCL 25 MG CAPSULE PO SCH (20:33)
[2018-08-22] MEDS: DIVALPROEX SODIUM 500 MG ER TABLET PO SCH (20:35)
[2018-08-22] MEDS: LORazepam 2 MG TABLET PO PRN (22:52)
[2018-08-23 07:27] VITALS: BP 126/82
[2018-08-23 08:21] VITALS: BP 156/73
[2018-08-23] MEDS: AMANTADINE HCL 100 MG CAPSULE PO SCH ×2 (08:22→16:53)
[2018-08-23] MEDS: DIVALPROEX SODIUM 500 MG ER TABLET PO SCH ×2 (08:22→20:23)
[2018-08-23] MEDS: HALOPERIDOL 10 MG TABLET PO SCH ×3 (08:22→20:23)
[2018-08-23] MEDS: AmLODIPine BESYLATE 2.5 MG TABLET PO SCH (08:22)
[2018-08-23] MEDS: LevETIRAcetam 500 MG TABLET PO SCH (08:23)
[2018-08-23] MEDS: NICOTINE 21 MG/24 HOUR PATCH TD SCH (08:27)
[2018-08-23] MEDS: LORazepam 2 MG TABLET PO PRN (11:11)
[2018-08-23 16:27] VITALS: BP 138/88
[2018-08-23] MEDS: DiphenhydrAMINE HCL 25 MG CAPSULE PO SCH (20:23)
[2018-08-24 05:21] VITALS: BP 130/81
[2018-08-24 07:43] LABS: BASOPHILS % (AUTO) 0.7 % (0.0-2.0); EOSINOPHILS % (AUTO) 2.8 % (1.0-6.0); HEMATOCRIT 45.7 % (36-46); HEMOGLOBIN 15.8 g/dL (12.0-16.0); LYMPHOCYTES # (AUTO) 2.3 K/uL (1.0-4.8); LYMPHOCYTES % (AUTO) 39.1 % (22.0-44.0); MEAN CORPUSCULAR HEMOGLOBIN 34.7 pg (26.0-34.0); MEAN CORPUSCULAR HGB CONC 34.5 G/dL (31.0-37.0); MEAN CORPUSCULAR VOLUME 101 fL (80-100); MONOCYTES # (AUTO) 0.6 K/uL (0.1-1.0); MONOCYTES % (AUTO) 10.8 % (2.0-9.0); NEUTROPHILS # (AUTO) 2.8 K/uL (1.8-7.7); NEUTROPHILS % (AUTO) 46.6 % (40.0-70.0); PLATELET COUNT (AUTO) 221 K/uL (150-450); RED BLOOD CELL COUNT(AUTO) 4.55 MIL/uL (4.00-5.20); RED CELL DISTRIBUTION WIDTH 13.9 % (11.5-14.5)
[2018-08-24 08:18] LABS: ALANINE AMINOTRANSFERASE 35 U/L (12-78); ALBUMIN 3.8 g/dL (3.4-5.0); ALKALINE PHOSPHATASE 102 U/L (46-116); ANION GAP 7 mmol/L (8-16); ASPARTATE AMINOTRANSFERASE 25 U/L (15-37); BILIRUBIN,TOTAL 0.4 mg/dL (0.1-1.0); CALCIUM, TOTAL 9.4 mg/dL (8.8-10.5); CARBON DIOXIDE 34 mmol/L (22-29); CHLORIDE 102 mmol/L (98-107); CHOL/HDL RATIO 3.5 (3.9-5.7); CHOLESTEROL 193 mg/dL (131-200); CREATININE 0.86 mg/dL (0.60-1.30); FREE T4 (FREE THYROXINE) 0.99 ng/dL (0.76-1.46); GLOMERULAR FILTR. RATE CALC > 60 mL/min (>60); GLUCOSE,RANDOM 88 mg/dL (70-110); HDL CHOLESTEROL 55 mg/dL (40-60); LDL CHOL (CALC.) 101 mg/dL (0-130); POTASSIUM 4.2 mmol/L (3.5-5.1); SODIUM SERUM 143 mmol/L (136-145); THYROID STIMULATING HORMONE 1.56 uIU/mL (0.36-3.74); TOTAL PROTEIN, SERUM 7.1 g/dL (6.4-8.2); TRIGLYCERIDES 186 mg/dL (15-150); UREA NITROGEN, BLOOD 15 mg/dL (7-18)
[2018-08-24 08:23] VITALS: BP 117/73
[2018-08-24 08:27] LABS: HEMOGLOBIN A1C 5.3 % (4.5-6.2)
[2018-08-24] MEDS: DIVALPROEX SODIUM 500 MG ER TABLET PO SCH ×2 (08:34→20:33)
[2018-08-24] MEDS: AMANTADINE HCL 100 MG CAPSULE PO SCH ×2 (08:34→16:34)
[2018-08-24] MEDS: AmLODIPine BESYLATE 2.5 MG TABLET PO SCH (08:34)
[2018-08-24] MEDS: HALOPERIDOL 10 MG TABLET PO SCH ×3 (08:35→20:33)
[2018-08-24] MEDS: LevETIRAcetam 500 MG TABLET PO SCH (08:35)
[2018-08-24] MEDS: NICOTINE 21 MG/24 HOUR PATCH TD SCH (08:35)
[2018-08-24] MEDS: LORazepam 2 MG TABLET PO PRN (11:37)
[2018-08-24 16:52] VITALS: BP 118/86
[2018-08-24] MEDS: DiphenhydrAMINE HCL 25 MG CAPSULE PO SCH (20:33)
[2018-08-25 05:08] VITALS: BP 120/81
[2018-08-25 08:07] VITALS: BP 121/75
[2018-08-25] MEDS: NICOTINE 21 MG/24 HOUR PATCH TD SCH (08:30)
[2018-08-25] MEDS: DIVALPROEX SODIUM 500 MG ER TABLET PO SCH (08:30)
[2018-08-25] MEDS: LevETIRAcetam 500 MG TABLET PO SCH (08:30)
[2018-08-25] MEDS: AMANTADINE HCL 100 MG CAPSULE PO SCH (08:30)
[2018-08-25] MEDS: AmLODIPine BESYLATE 2.5 MG TABLET PO SCH (08:30)
[2018-08-25] MEDS: HALOPERIDOL 10 MG TABLET PO SCH (08:30)
[2018-08-25] MEDS ORDERED: NICO-704 TD (10:20)
[2018-08-25] MEDS ORDERED: AMLO2.5T2 PO (10:20)
== END 2018-08-25 13:20 | disposition home or self-care (01) | DRG 885 ==
LOC: B2X 14:29
PROVIDERS: ADMIT Psychiatry & Neurology Psychiatry; ATTEND Psychiatry & Neurology Psychiatry
DX: F25.9 Schizoaffective disorder, unspecified (principal); G20 Parkinson's disease; D64.9 Anemia, unspecified; D69.6 Thrombocytopenia, unspecified; F12.90 Cannabis use, unspecified, uncomplicated; I10 Essential (primary) hypertension; J44.9 Chronic obstructive pulmonary disease, unspecified; K21.9 Gastro-esophageal reflux disease without esophagitis; F15.90 Other stimulant use, unspecified, uncomplicated; R56.9 Unspecified convulsions; Z82.49 Family history of ischemic heart disease and other diseases of the circulatory system; Z88.0 Allergy status to penicillin; Z88.8 Allergy status to other drugs, medicaments and biological substances; Z88.1 Allergy status to other antibiotic agents; Z28.21 Immunization not carried out because of patient refusal; Z90.49 Acquired absence of other specified parts of digestive tract; Z79.899 Other long term (current) drug therapy
CPT/HCPCS: 83036; 84439; 84443; 87081

== ENCOUNTER 2019-12-10 11:31 | Inpatient (IN) | payer MEDICARE, MEDICAID ==
[~2019-12-10] VITALS: Ht 149.9 cm; Wt 78.1 kg
[~2019-12-10 11:31] MED LIST changes: -AMAN100C12 PO; -AMANL PO; +AMLO2.5T2 PO; -DIPH25 PO; -GABA-531 PO; -HALO5TAB2 PO; -HYDR-4031 PO; -HYDR50CA10 PO; +METO25XL PO; -MV-M1TAB2 PO; -NALT50TA PO; -NYST15PO3 TP; -THIA1002I IM; +TRAZ-252 PO
[2019-12-10] MEDS ORDERED: ZOLPIDEM TARTRATE 10 MG TABLET PO PRN (13:00)
[2019-12-10] MEDS ORDERED: HALOPERIDOL 5 MG TABLET PO PRN (13:00)
[2019-12-10 13:31] VITALS: BP 109/74
[2019-12-10] MEDS ORDERED: [UNRECOGNIZED DRUG - CODE] PO (15:06)
[2019-12-10] MEDS ORDERED: IPRA4AER IH (15:06)
[2019-12-10] MEDS ORDERED: HYDR50CA9 PO (15:06)
[2019-12-10] MEDS ORDERED: IBUP-2070 PO (15:06)
[2019-12-10] MEDS ORDERED: INFLUENZA VIRUS VACCINE QVS 2019-20 (3YR+)/PF 60 MCG/0.5 ML SYRINGE IM ONE (15:15)
[2019-12-10 16:16] VITALS: BP 120/79
[2019-12-10] MEDS: HALOPERIDOL 10 MG TABLET PO SCH (16:33)
[2019-12-10] MEDS: LORazepam 2 MG TABLET PO PRN (18:05)
[2019-12-10] MEDS: TraZODone HCL 50 MG TABLET PO SCH (20:33)
[2019-12-10] MEDS: DIVALPROEX SODIUM 500 MG ER TABLET PO SCH (20:33)
[2019-12-11] MEDS ORDERED: ACETAMINOPHEN 325 MG TABLET PO PRN
[2019-12-11] MEDS ORDERED: IBUPROFEN 600 MG TABLET PO PRN
[2019-12-11 00:40] VITALS: BP 121/72
[2019-12-11 07:53] LABS: APPEARANCE,URINE CLOUDY (CLEAR); BILIRUBIN,URINE NEGATIVE (NEGATIVE); GLUCOSE, URINE (UA) NEGATIVE (NEGATIVE); KETONES,URINE NEGATIVE (NEGATIVE); LEUKOCYTE ESTERASE ,URINE SMALL (NEGATIVE); NITRATE,URINE NEGATIVE (NEGATIVE); OCCULT BLOOD,URINE NEGATIVE (NEGATIVE); PROTEIN,URINE NEGATIVE (NEGATIVE)
[2019-12-11 07:55] LABS: AMPHET/METH SCREEN,URINE NEGATIVE (NEGATIVE); BARBITURATE SCREEN, URINE NEGATIVE (NEGATIVE); BENZODIAZEPINES SCREEN,URINE NEGATIVE (NEGATIVE); CANNABINOID SCREEN,URINE NEGATIVE (NEGATIVE); COCAINE SCREEN,URINE NEGATIVE (NEGATIVE); METHADONE SCREEN, URINE NEGATIVE (NEGATIVE); OPIATE SCREEN,URINE NEGATIVE (NEGATIVE)
[2019-12-11 08:02] LABS: PHENCYCLIDINE SCREEN,URINE NEGATIVE (NEGATIVE)
[2019-12-11 08:15] VITALS: BP 108/69
[2019-12-11 08:17] LABS: BACTERIA,URINE Rare /HPF (None Seen); RBC,URINE 0-2 /HPF (0-2); SQUAMOUS EPITHELIAL CELL,UR Many /LPF (None Seen)
[2019-12-11] MEDS: METOPROLOL SUCCINATE 25 MG ER TABLET PO SCH (09:25)
[2019-12-11] MEDS: DIVALPROEX SODIUM 500 MG ER TABLET PO SCH ×2 (09:25→20:51)
[2019-12-11] MEDS: ALBUTEROL SULFATE/IPRATROPIUM 100-20 MCG/SPRAY 4 GM INHALER IH SCH ×4 (09:25→21:00)
[2019-12-11] MEDS: LevETIRAcetam 500 MG TABLET PO SCH (09:26)
[2019-12-11] MEDS: HALOPERIDOL 10 MG TABLET PO SCH ×2 (09:26→16:44)
[2019-12-11] MEDS: AmLODIPine BESYLATE 2.5 MG TABLET PO SCH (09:26)
[2019-12-11 09:44] VITALS: BP 116/70
[2019-12-11] MEDS: LORazepam 2 MG TABLET PO PRN (14:27)
[2019-12-11 16:29] VITALS: BP 112/76
[2019-12-11] MEDS: TraZODone HCL 50 MG TABLET PO SCH (20:51)
[2019-12-12 00:44] VITALS: BP 110/72
[2019-12-12 08:55] VITALS: BP 111/68
[2019-12-12 09:05] VITALS: BP 137/72
[2019-12-12] MEDS: METOPROLOL SUCCINATE 25 MG ER TABLET PO SCH (09:13)
[2019-12-12] MEDS: AmLODIPine BESYLATE 2.5 MG TABLET PO SCH (09:13)
[2019-12-12] MEDS: HALOPERIDOL 10 MG TABLET PO SCH ×2 (09:13→16:13)
[2019-12-12] MEDS: DIVALPROEX SODIUM 500 MG ER TABLET PO SCH ×2 (09:13→20:21)
[2019-12-12] MEDS: LevETIRAcetam 500 MG TABLET PO SCH (09:13)
[2019-12-12] MEDS: ALBUTEROL SULFATE/IPRATROPIUM 100-20 MCG/SPRAY 4 GM INHALER IH SCH ×4 (09:34→20:21)
[2019-12-12] MEDS: LORazepam 2 MG TABLET PO PRN ×2 (10:32→19:43)
[2019-12-12 16:11] VITALS: BP 124/67
[2019-12-12] MEDS: TraZODone HCL 50 MG TABLET PO SCH (20:21)
[2019-12-13 06:31] VITALS: BP 130/73
[2019-12-13 08:17] VITALS: BP 134/79
[2019-12-13] MEDS: HALOPERIDOL 10 MG TABLET PO SCH (09:32)
[2019-12-13] MEDS: LevETIRAcetam 500 MG TABLET PO SCH (09:32)
[2019-12-13] MEDS: DIVALPROEX SODIUM 500 MG ER TABLET PO SCH (09:32)
[2019-12-13] MEDS: METOPROLOL SUCCINATE 25 MG ER TABLET PO SCH (09:32)
[2019-12-13] MEDS: ALBUTEROL SULFATE/IPRATROPIUM 100-20 MCG/SPRAY 4 GM INHALER IH SCH ×2 (09:33→12:03)
[2019-12-13] MEDS: AmLODIPine BESYLATE 2.5 MG TABLET PO SCH (09:33)
== END 2019-12-13 15:55 | disposition home or self-care (01) | DRG 885 ==
LOC: B2X 12:30
PROVIDERS: ADMIT Psychiatry & Neurology Psychiatry; ATTEND Psychiatry & Neurology Psychiatry
DX: F25.9 Schizoaffective disorder, unspecified (principal); R45.851 Suicidal ideations; G89.29 Other chronic pain; I10 Essential (primary) hypertension; J44.9 Chronic obstructive pulmonary disease, unspecified; K21.9 Gastro-esophageal reflux disease without esophagitis; R56.9 Unspecified convulsions; Z82.49 Family history of ischemic heart disease and other diseases of the circulatory system
CPT/HCPCS: 80307

== ENCOUNTER 2022-12-06 18:08 | Emergency (ER) | payer MEDICARE, MEDICAID ==
[~2022-12-06] VITALS: Ht 160 cm; Wt 65.9 kg
[~2022-12-06 18:08] MED LIST changes: -DIVA500T52 PO; +DIVA500T53 PO; -HALO10 PO; +HALO10TA21 PO; +IPRA4AER IH; +LEVE500T20 PO; -LEVE500T53 PO
[2022-12-06] MEDS ORDERED: AMLO2.5T29 PO (18:25)
[2022-12-06] MEDS ORDERED: TOPI-255 PO (18:25)
[2022-12-06] MEDS ORDERED: HALO20TA7 PO (18:25)
[2022-12-06] MEDS ORDERED: ASPI-1444 PO (18:25)
[2022-12-06] MEDS ORDERED: DIVA125C20 PO (18:25)
[2022-12-06] MEDS ORDERED: KETOROLAC TROMETHAMINE 30 MG/ML VIAL IM ONE (19:45)
[2022-12-06] MEDS ORDERED: LIDOCAINE 5% TRANSDERMAL PATCH TD ONE (19:45)
[2022-12-06 20:00] VITALS: BP 126/78
[2022-12-06] MEDS ORDERED: LIDO700A15 TP (20:39)
== END 2022-12-07 00:09 | disposition home or self-care (01) ==
LOC: EMS 18:16
DX: M54.50 Low back pain, unspecified (principal); F10.20 Alcohol dependence, uncomplicated; J45.909 Unspecified asthma, uncomplicated; F31.9 Bipolar disorder, unspecified; J44.9 Chronic obstructive pulmonary disease, unspecified; I10 Essential (primary) hypertension; F20.9 Schizophrenia, unspecified; F17.210 Nicotine dependence, cigarettes, uncomplicated; Z98.890 Other specified postprocedural states; Z88.8 Allergy status to other drugs, medicaments and biological substances; Z88.0 Allergy status to penicillin; Z90.89 Acquired absence of other organs
CPT/HCPCS: 99283; 96372; J1885

== ENCOUNTER → 2023-02-15 | Outpatient (CLI) | payer MEDICARE, MEDICAID ==
[~2023-02-15] MED LIST changes: -AMLO2.5T2 PO; +AMLO2.5T29 PO; +ASPI-1444 PO; +DIVA125C20 PO; -DIVA500T53 PO; -HALO10TA21 PO; +HALO20TA7 PO; -IPRA4AER IH; +LIDO700A15 TP; -METO25XL PO; +TOPI-255 PO; -TRAZ-252 PO
[2023-02-15 16:25] LABS: BASOPHILS % (AUTO) 0.5 % (0.0-2.0); EOSINOPHILS % (AUTO) 0.6 % (1.0-6.0); HEMATOCRIT 34.9 % (36-46); HEMOGLOBIN 11.7 g/dL (12.0-16.0); LYMPHOCYTES # (AUTO) 1.8 K/uL (1.0-4.8); LYMPHOCYTES % (AUTO) 26.5 % (22.0-44.0); MEAN CORPUSCULAR HEMOGLOBIN 34.8 pg (26.0-34.0); MEAN CORPUSCULAR HGB CONC 33.5 G/dL (31.0-37.0); MEAN CORPUSCULAR VOLUME 104 fL (80-100); MONOCYTES # (AUTO) 0.6 K/uL (0.1-1.0); MONOCYTES % (AUTO) 9.7 % (2.0-9.0); NEUTROPHILS # (AUTO) 4.2 K/uL (1.8-7.7); NEUTROPHILS % (AUTO) 62.7 % (40.0-70.0); PLATELET COUNT (AUTO) 254 K/uL (150-450); RED BLOOD CELL COUNT(AUTO) 3.36 MIL/uL (4.00-5.20); RED CELL DISTRIBUTION WIDTH 14.6 % (11.5-14.5)
[2023-02-15 16:49] LABS: ALANINE AMINOTRANSFERASE 15 U/L (12-78); ALBUMIN 3.3 g/dL (3.4-5.0); ALKALINE PHOSPHATASE 102 U/L (46-116); ANION GAP 8 mmol/L (8-16); ASPARTATE AMINOTRANSFERASE 11 U/L (15-37); BILIRUBIN,TOTAL 0.2 mg/dL (0.1-1.0); CALCIUM, TOTAL 8.9 mg/dL (8.8-10.5); CARBON DIOXIDE 27 mmol/L (22-29); CHLORIDE 101 mmol/L (98-107); CREATININE 0.65 mg/dL (0.60-1.30); GLOMERULAR FILTR. RATE CALC > 60 mL/min (>60); GLUCOSE,RANDOM 97 mg/dL (70-110); POTASSIUM 4.6 mmol/L (3.5-5.1); SODIUM SERUM 136 mmol/L (136-145); THYROID STIMULATING HORMONE 2.65 uIU/mL (0.36-3.74); TOTAL PROTEIN, SERUM 6.4 g/dL (6.4-8.2)
== END | disposition home or self-care (01) ==
LOC: LABMN 15:14
PROVIDERS: ATTEND Psychiatry & Neurology Psychiatry
DX: F25.0 Schizoaffective disorder, bipolar type (principal)
CPT/HCPCS: 80053; 84436; 84443; 85025

== ENCOUNTER → 2023-04-08 | Outpatient (CLI) | payer MEDICARE, MEDICAID | END | disposition home or self-care (01) | LOC: LABMN 12:45 | PROVIDERS: ATTEND Psychiatry & Neurology Psychiatry | DX: F25.1 Schizoaffective disorder, depressive type (principal) | CPT/HCPCS: 80173 ==

== ENCOUNTER 2023-04-10 13:15 | Inpatient (IN) | payer MEDICARE, MEDICAID ==
[~2023-04-10] VITALS: Ht 152.4 cm; Wt 74.6 kg
[2023-04-10 14:38] LABS: GLUCOMETER DEV NAME(LOC) POC.BV
[2023-04-10 14:45] VITALS: BP 145/84; PULSE 89; RESP 18; TEMP 96.8
[2023-04-10] MEDS ORDERED: PROMETHAZINE HCL 25 MG TABLET PO PRN (15:45)
[2023-04-10] MEDS ORDERED: HydrOXYzine PAMOATE 50 MG CAPSULE PO PRN (15:45)
[2023-04-10] MEDS ORDERED: LOPERAMIDE HCL 2 MG CAPSULE PO PRN (15:45)
[2023-04-10] MEDS ORDERED: ZOLPIDEM TARTRATE 10 MG TABLET PO PRN (15:45)
[2023-04-10] MEDS ORDERED: LORazepam 2 MG TABLET PO PRN (15:45)
[2023-04-10] MEDS ORDERED: TUBERCULIN, PURIFIED PROTEIN DERIVATIVE 5 TU/0.1 ML SYRINGE ID ONE (15:45)
[2023-04-10] MEDS ORDERED: MAG HYDROX/AL HYDROX/SIMETH ES 30 ML SUSPENSION UDCUP PO PRN (15:45)
[2023-04-10] MEDS ORDERED: MAGNESIUM HYDROXIDE SUSPENSION 30 ML UDCUP PO PRN (15:45)
[2023-04-10] MEDS ORDERED: HALOPERIDOL 5 MG TABLET PO PRN (15:45)
[2023-04-10] MEDS ORDERED: ACETAMINOPHEN 325 MG TABLET PO PRN (15:45)
[2023-04-10] MEDS ORDERED: GuaiFENesin/D-METHORPHAN [SUGAR-FREE] 200-20MG/10 ML SYRUP UDCUP PO PRN (15:45)
[2023-04-10 16:00] VITALS: BP 125/78; PULSE 87; RESP 18; TEMP 97.8; O2SAT 96
[2023-04-10] MEDS: HALOPERIDOL 5 MG TABLET PO SCH (18:40)
[2023-04-10] MEDS: THIAMINE 100 MG TABLET PO SCH (18:41)
[2023-04-10] MEDS: BusPIRone HCL 5 MG TABLET PO SCH (18:41)
[2023-04-10] MEDS: LevETIRAcetam 500 MG TABLET PO SCH (18:41)
[2023-04-10] MEDS: HydrOXYzine PAMOATE 50 MG CAPSULE PO SCH ×2 (18:41→20:50)
[2023-04-10 20:30] VITALS: BP 122/68; PULSE 78; RESP 17; TEMP 98; O2SAT 98
[2023-04-10] MEDS: MELATONIN 5 MG TABLET PO SCH (20:44)
[2023-04-10] MEDS: TOPIRAMATE 25 MG TABLET PO SCH (20:44)
[2023-04-11] MEDS: MULTIVITAMINS WITH MINERALS, THERAPEUTIC TABLET PO SCH (08:03)
[2023-04-11] MEDS: LevETIRAcetam 500 MG TABLET PO SCH ×2 (08:03→16:55)
[2023-04-11] MEDS: OMEGA-3/DHA/EPA/FISH OIL 1,000 MG CAPSULE PO SCH (08:03)
[2023-04-11] MEDS: HydrOXYzine PAMOATE 50 MG CAPSULE PO SCH ×4 (08:03→20:15)
[2023-04-11] MEDS: HALOPERIDOL 5 MG TABLET PO SCH ×3 (08:04→16:56)
[2023-04-11] MEDS: DIVALPROEX SODIUM 500 MG ER TABLET PO SCH (08:04)
[2023-04-11] MEDS: THIAMINE 100 MG TABLET PO SCH ×2 (08:04→16:55)
[2023-04-11] MEDS: ASPIRIN 81 MG CHEWABLE TABLET PO SCH (08:04)
[2023-04-11] MEDS: BusPIRone HCL 5 MG TABLET PO SCH (08:04)
[2023-04-11] MEDS: FOLIC ACID 1 MG TABLET PO SCH (08:04)
[2023-04-11] MEDS: AmLODIPine BESYLATE 2.5 MG TABLET PO SCH (08:05)
[2023-04-11 08:14] LABS: BASOPHILS % (AUTO) 0.4 % (0.0-2.0); EOSINOPHILS % (AUTO) 0.9 % (1.0-6.0); HEMATOCRIT 35.8 % (36-46); HEMOGLOBIN 12.2 g/dL (12.0-16.0); LYMPHOCYTES # (AUTO) 1.8 K/uL (1.0-4.8); LYMPHOCYTES % (AUTO) 35.7 % (22.0-44.0); MEAN CORPUSCULAR HEMOGLOBIN 34.3 pg (26.0-34.0); MEAN CORPUSCULAR VOLUME 101 fL (80-100); MONOCYTES # (AUTO) 0.7 K/uL (0.1-1.0); NEUTROPHILS # (AUTO) 2.5 K/uL (1.8-7.7); PLATELET COUNT (AUTO) 195 K/uL (150-450); RED BLOOD CELL COUNT(AUTO) 3.55 MIL/uL (4.00-5.20); RED CELL DISTRIBUTION WIDTH 14.3 % (11.5-14.5)
[2023-04-11 08:38] VITALS: BP 120/66; PULSE 77; RESP 16; TEMP 98.2
[2023-04-11 08:54] LABS: ALBUMIN 2.6 g/dL (3.4-5.0); ALKALINE PHOSPHATASE 90 U/L (46-116); ANION GAP 5 mmol/L (8-16); ASPARTATE AMINOTRANSFERASE 9 U/L (15-37); BILIRUBIN,TOTAL 0.3 mg/dL (0.1-1.0); CARBON DIOXIDE 30 mmol/L (22-29); CHLORIDE 105 mmol/L (98-107); CHOL/HDL RATIO 3.4 (3.9-5.7); CHOLESTEROL 165 mg/dL (131-200); CREATININE 0.73 mg/dL (0.60-1.30); GLOMERULAR FILTR. RATE CALC > 60 mL/min (>60); GLUCOSE,RANDOM 95 mg/dL (70-110); HDL CHOLESTEROL 48 mg/dL (40-60); LDL CHOL (CALC.) 78 mg/dL (0-130); POTASSIUM 3.6 mmol/L (3.5-5.1); SODIUM SERUM 140 mmol/L (136-145); THYROID STIMULATING HORMONE 3.84 uIU/mL (0.36-3.74); TOTAL PROTEIN, SERUM 6.3 g/dL (6.4-8.2); TRIGLYCERIDES 194 mg/dL (15-150); VALPROIC ACID 42 mcg/mL (50-100)
[2023-04-11 09:02] LABS: ALANINE AMINOTRANSFERASE 7 U/L (12-78)
[2023-04-11] MEDS: BusPIRone HCL 10 MG TABLET PO SCH (17:00)
[2023-04-11] MEDS: MELATONIN 5 MG TABLET PO SCH (20:14)
[2023-04-11] MEDS: TOPIRAMATE 25 MG TABLET PO SCH (20:14)
[2023-04-11 21:35] VITALS: BP 118/57; PULSE 82; RESP 18; TEMP 98.1
[2023-04-12] MEDS: ASPIRIN 81 MG CHEWABLE TABLET PO SCH (08:10)
[2023-04-12] MEDS: BusPIRone HCL 10 MG TABLET PO SCH (08:10)
[2023-04-12] MEDS: DIVALPROEX SODIUM 500 MG ER TABLET PO SCH (08:10)
[2023-04-12] MEDS: AmLODIPine BESYLATE 2.5 MG TABLET PO SCH (08:11)
[2023-04-12] MEDS: MULTIVITAMINS WITH MINERALS, THERAPEUTIC TABLET PO SCH (08:11)
[2023-04-12] MEDS: FOLIC ACID 1 MG TABLET PO SCH (08:11)
[2023-04-12] MEDS: LevETIRAcetam 500 MG TABLET PO SCH (08:11)
[2023-04-12] MEDS: HALOPERIDOL 5 MG TABLET PO SCH ×2 (08:11→12:32)
[2023-04-12] MEDS: OMEGA-3/DHA/EPA/FISH OIL 1,000 MG CAPSULE PO SCH (08:11)
[2023-04-12] MEDS: HydrOXYzine PAMOATE 50 MG CAPSULE PO SCH ×2 (08:12→12:32)
[2023-04-12] MEDS: THIAMINE 100 MG TABLET PO SCH (08:22)
[2023-04-12 08:42] VITALS: BP 110/72; PULSE 70; RESP 17; TEMP 97.7
[2023-04-12] MEDS ORDERED: LEVE500T8 PO (15:12)
[2023-04-12] MEDS ORDERED: BUSP10TA23 PO (15:12)
[2023-04-12] MEDS ORDERED: HALO5TAB23 PO (15:12)
[2023-04-12] MEDS ORDERED: HYDR50CA7 PO (15:12)
[2023-04-12] MEDS ORDERED: OMEG-135 PO (15:12)
[2023-04-12] MEDS ORDERED: TOPI25 PO (15:12)
[2023-04-12] MEDS ORDERED: DIVA500T69 PO (15:12)
[2023-04-12] MEDS ORDERED: MELA5TAB40 PO (15:12)
[2023-04-12 15:40] VITALS: BP 110/64; PULSE 98; RESP 18; TEMP 97.7; O2SAT 97
[2023-04-12] MEDS ORDERED: VARE1TAB25 PO (16:20)
== END 2023-04-12 15:45 | disposition home or self-care (01) | DRG 885 ==
LOC: B2X 15:58
PROVIDERS: ADMIT Psychiatry & Neurology Psychiatry; ATTEND Psychiatry & Neurology Psychiatry
PROC: GZHZZZZ Group Psychotherapy (ICD-10-PCS; principal; 2023-04-10)
PROC: GZ51ZZZ Individual Psychotherapy, Behavioral (ICD-10-PCS; 2023-04-10)
DX: F25.9 Schizoaffective disorder, unspecified (principal); F17.210 Nicotine dependence, cigarettes, uncomplicated; E66.9 Obesity, unspecified; E11.9 Type 2 diabetes mellitus without complications; J44.9 Chronic obstructive pulmonary disease, unspecified; G89.29 Other chronic pain; M54.9 Dorsalgia, unspecified; F41.9 Anxiety disorder, unspecified; D64.9 Anemia, unspecified; Z20.822 Contact with and (suspected) exposure to COVID-19; F32.A Depression, unspecified; F43.10 Post-traumatic stress disorder, unspecified; K74.60 Unspecified cirrhosis of liver; K21.9 Gastro-esophageal reflux disease without esophagitis; I10 Essential (primary) hypertension; Z88.0 Allergy status to penicillin; Z88.8 Allergy status to other drugs, medicaments and biological substances; Z79.82 Long term (current) use of aspirin; Z79.899 Other long term (current) drug therapy; Z90.49 Acquired absence of other specified parts of digestive tract; Z68.32 Body mass index [BMI] 32.0-32.9, adult; Z59.9 Problem related to housing and economic circumstances, unspecified; Z55.9 Problems related to education and literacy, unspecified; Z63.9 Problem related to primary support group, unspecified; Z65.3 Problems related to other legal circumstances
CPT/HCPCS: 80053; 80061; 80164; 80173; 84443; 85025; 86592; Q9967